=== PATIENT | female | born 1995 | race Caucasian/White ===

== ENCOUNTER 2016-07-24 23:55 | Emergency (ER) | payer OTHER ==
[~2016-07-24 23:55] MED LIST: ACET50TA PO; COLA100C PO; FLINCHW9 PO; MOTR200T44 PO
[2016-07-25 00:56] LABS: MEAN CORPUSCULAR HEMOGLOBIN 33.2 pg (27.0-33.0); MEAN CORPUSCULAR VOLUME 97.6 fl (80.0-96.0); RED CELL DISTRIBUTION WIDTH 11.6 % (11.5-14.5); WHITE BLOOD COUNT 7.8 K/mm3 (4.0-10.0)
[2016-07-25 01:03] LABS: AMPHETAMINES LEVEL URINE NEGATIVE (NEGATIVE); BENZODIAZEPINES URINE NEGATIVE (NEGATIVE); COCAINE METABOLITE URINE NEGATIVE (NEGATIVE); CONTROL LINE INT CTR LINE PRESENT; CONTROL LINE HCG INT CTR LINE PRESENT; METHADONE URINE NEGATIVE (NEGATIVE); OPIATES URINE NEGATIVE (NEGATIVE); TRICYCLIC ANTIDEPRESS URINE NEGATIVE (NEGATIVE)
[2016-07-25] MEDS ORDERED: ADACEL/BOOSTRIX VACCINE (DIPHTH/PERTUSS/ACELL/TETANUS)0.5ML SYR (90715) As Ordered ONE (01:06)
[2016-07-25 01:18] LABS: ALBUMIN 4.4 GM/DL (3.2-5.2); ALBUMIN/GLOBULIN RATIO 1.57 (1.00-1.93); ALKALINE PHOSPHATASE 93 U/L (45-117); ALT/SGPT 14 U/L (12-78); ANION GAP 7 MEQ/L (8-16); AST/SGOT 9 U/L (15-37); BILIRUBIN,DIRECT 0.2 MG/DL (0.0-0.2); BILIRUBIN,TOTAL 0.4 MG/DL (0.2-1.0); BLOOD UREA NITROGEN 8 MG/DL (7-18); CALCIUM LEVEL 8.9 MG/DL (8.5-10.1); CARBON DIOXIDE LEVEL 27 MEQ/L (21-32); CHLORIDE LEVEL 106 MEQ/L (98-107); CREATININE FOR GFR 0.78 MG/DL (0.55-1.02); GLOMERULAR FILTRATION RATE > 60.0 (>60); GLUCOSE, FASTING 88 MG/DL (70-105); POTASSIUM SERUM 3.9 MEQ/L (3.5-5.1); SODIUM LEVEL 140 MEQ/L (136-145); TOTAL PROTEIN 7.2 GM/DL (6.4-8.2)
[2016-07-25] MEDS ORDERED: NEOSPORIN OINT 0.9 GM PKT (FLOOR STOCK) As Ordered ONE (14:20)
--- NOTE | 2016-07-25 16:57 | ECGEPIP ---
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
--- NOTE | 2016-07-25 20:11 | EDDOCDS ---
Physician Documentation [facility] Name: Eryn Maldonado Age: 21 yrs Sex: Female : 1995 Arrival Date: 07/24/2016 Time: 23:[address] MD: Trevin Quintero MD Disposition: 07/25/16 17:20 Transfer ordered to [facility]. Diagnosis is Suicidal ideations. - Reason for transfer: Higher level of care. - Accepting physician is Dr. Taylor. - Condition is Unchanged. - Problem is new. - Symptoms are unchanged. Historical: - Allergies: no known allergies; - Home Meds: 1. was on prozac but quit taking 2 months ago - PMHx: none; - PSHx: none; - Immunization history:: Last tetanus immunization: unknown. - Family history: Not pertinent. - Social history: Smoking status: Patient uses tobacco products, light tobacco smoker. No barriers to communication noted, The patient speaks fluent [place]. - : The pt / caregiver states he / she is not on anticoagulants. Home medication list is obtained from the patient. - Exposure Risk Screening:: None identified. 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 2 in. (157.48 cm) (R); Pain 6/10; 07/25 06:28 BP 109 / 57; Pulse 88; Resp 16; Temp 98.3(TE); Pulse Ox 96% on R/A; Pain 0/10; rw1 11:08 BP 136 / 74; Pulse 86; Resp 16; Temp 97.4(O); Pulse Ox 98% on R/A; Pain 0/10; bcj 19:39 BP 103 / 61; Pulse 79; Resp 16; Temp 97.2(O); Pain 8/10; mf4 07/24 23:58 Body Mass Index 29.26 (72.57 kg, 157.48 cm) gr2 Procedures: 01:02 Laceration repair:. cs11 Laceration: 01:02 Wound Repair of 6.0cm ( 2.4in ) full thickness laceration to left arm. Distal cs11 neuro/vascular/tendon intact. Anesthesia: Local anesthetic administered with 3.0 mls of 1% lidocaine. Wound prep: Moderate cleansing with betadine by provider. Skin closed with 0 Silk using Running sutures. Patient tolerated well. MDM: 00:16 Consult PFS/PSA/Regulatory Assistant ordered. cs11 00:16 Consult PFS/PSA/Regulatory Assistant: Patient's case requires discussion with on-call cs11 Psychiatrist ordered. 00:16 PSA/PFS to call Nursing School Social Worker, to enter patient data on [place] Safe Act if patient cs11 involuntarily admitted or transferred for SI or HI ordered. 00:16 Confirm accurate psychiatric medication list and times of last dosage ordered. cs11 00:16 Detain Pt Until Medically/PFS Cleared ordered. cs11 00:17 Acetaminophen Level Ordered. EDMS 00:17 Basic Metabolic Profile Ordered. EDMS 00:17 Complete Blood Count Ordered. EDMS 00:17 Drug Eval Toxicology ED Only Ordered. EDMS 00:17 Ethyl Alcohol (ethanol) Ordered. EDMS 00:17 HCG,Serum Qualitative Ordered. EDMS 00:17 Liver Profile Ordered. EDMS 00:17 Salicylate Level Ordered. EDMS 00:17 Thyroid Stimulating Hormone Ordered. EDMS 00:23 Financial registration complete. pm4 00:55 [facility] Payment Agreement was scanned into [employer] and attached to record. gjb 00:59 Tetanus- Diptheria-Acellular Pertussis 0.5 ml IM once; Routine booster 10-64yrs, >64 cs11 with child contact [employer] ordered. 02:17 Consult PFS/PSA/Regulatory Assistant complete. jfb 02:17 Consult PFS/PSA/Regulatory Assistant: Patient's case requires discussion with on-call b Psychiatrist complete. 02:17 PSA/PFS to call Nursing School Social Worker, to enter patient data [place] Safe [place] if patient jfb involuntarily admitted or transferred for SI or HI complete. 03:34 Acetaminophen Level Reviewed. cs11 03:34 Basic Metabolic Profile Reviewed. cs11 03:34 Complete Blood Count Reviewed. cs11 03:34 Liver Profile Reviewed. cs11 03:34 Salicylate Level Reviewed. cs11 03:34 Drug Eval Toxicology ED Only Reviewed. cs11 03:34 Ethyl Alcohol (ethanol) Reviewed. cs11 03:34 HCG,Serum Qualitative Reviewed. cs11 03:34 Thyroid Stimulating Hormone Reviewed. cs11 03:35 Consult PFS/PSA/Socail Worker: Cleared medically for eval ordered. cs11 03:36 Consult PFS/PSA/Socail Worker: Cleared medically for eval complete. jfb 04:04 REGULAR DIET PLASTIC HARRIS+DIET ordered. EDMS 11:21 REGULAR DIET PLASTIC HARRIS+DIET ordered. EDMS 14:32 ECG WITH READING ER PHYS+CARDIAG ordered. EDMS 16:50 REGULAR DIET PLASTIC HARRIS+DIET ordered. 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 Lot #: [id number]. } Route: IM; Site: right deltoid; 04:03 Follow up: Response: No Adverse Reaction rw1 Signatures: Dispatcher [employer] Rosa Hinkle MD MD sd1 Janet Clifford RN RN jan Peters, Mary, RN RN mcp Workman, Robert, LPN PRODUCT SAFETY EXPERT rw1 Ely Ramirez PSA PSA jfArnie Pierre, DO cs11 Nichelle Cornejo Paul, Reg Reg pm4 The chart was reviewed and I authenticate all verbal orders and agree with the evaluation and treatment provided.Attachments: 00:55 [id number] Payment Agreement louis [email or web address]
--- NOTE | 2016-07-25 20:11 | EDDOCDS ---
Nurse's Notes [facility] Name: Eryn Maldonado Age: 21 yrs Sex: Female : 1995 Arrival Date: 07/24/2016 Time: 23:55 Bed [facility] Private MD: Trevin Quintero MD Diagnosis: Suicidal ideations Presentation: 07/25 00:13 Presenting complaint: Patient states: Pt stated "gets upset easily". Tonight cut left mcp forearm with razor--states did not intend to kill self. Adult Sepsis Screening: The patient does not have new or worsening altered mentation. Patient's respiratory rate is less than 22. Systolic blood pressure is greater than 100. Patient has a qSOFA score of 0- Negative Sepsis Screen. Suicide/Homicide risk assessment- The patient reports that he/she has not been admitted to an inpatient mental health facility in the last 30 days. Status: Patient is not a service cleaner or dependent. Transition of care: patient was not received from another setting of care. 00:13 Acuity: [place] Level 3 [facility] 00:13 Method Of Arrival: Walkin/Carried/Asstd [facility] Triage Assessment: 00:16 General: Appears uncomfortable, Behavior is cooperative. Pain: Location: dorsal aspect mcp of left forearm. HIV screening NA for this visit Offered previously. Neurological: No deficits noted. Respiratory: Airway is patent Respiratory effort is even, unlabored. Derm: Skin is pink, warm & dry. Injury Description: Laceration sustained to dorsal aspect of left forearm is clean, 0.5 to 2.5 cm long, bleeding moderately. 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 was on prozac but quit taking 2 months ago - PMHx: none; - PSHx: none; - Immunization history:: Last tetanus immunization: unknown. - Family history: Not pertinent. - Social history: Smoking status: Patient uses tobacco products, light tobacco smoker. No barriers to communication noted, The patient speaks fluent [place]. - : The pt / caregiver states he / she is not on anticoagulants. Home medication list is obtained from the patient. - Exposure Risk Screening:: None identified. Screenin:15 Screening information is obtained from the patient. Fall risk: No risks identified. bcj Assistance ADL's: requires no assistance with activities of daily living. Abuse/DV Screen: The patient / caregiver reports he/she is: not in a situation that causes fear, pain or injury. Nutritional screening: No deficits noted. Advance Directives: Currently, there is no health care proxy. home support is adequate. Assessment: 00:16 General: see triage assessment. rw1 01:00 Reassessment: Patient appears in no apparent distress at this time. awake resting on rw1 stretcher, safety maintained will monitor.. 02:02 General: Appears distressed, uncomfortable, Behavior is cooperative, crying, upset rw1 because she was just told that she couldn't be d/c'd, safety maintained. Pain: Location: left arm and dorsal aspect of left forearm Pain currently is 6 out of 10 on a pain scale. Neurological: Level of Consciousness is awake, alert, obeys commands, Oriented to person, place, time. Respiratory: Airway is patent Respiratory effort is even, unlabored. Derm: Skin is pink, warm & dry. normal, Lt. forearm applied Bactracin dion. to sutures and applied DSD per MD order. 02:30 General: Appears in no apparent distress, Behavior is cooperative. Neurological: Level ko2 of Consciousness is awake, alert. Respiratory: Airway is patent Respiratory effort is even, unlabored. Derm: Skin is normal, Left forearm with bandage covering cut. 03:00 Reassessment: Patient appears in no apparent distress at this time. resting quietly on rw1 stretcher, safety maintained will monitor.. 03:59 Reassessment: Patient appears in no apparent distress at this time. resting quietly on rw1 stretcher with eyes closed, safety maintained will monitor.. 05:00 Reassessment: Patient appears in no apparent distress at this time. resting quietly on rw1 stretcher with eyes closed, safety maintained will monitor.. 05:59 General: Appears in no apparent distress, Behavior is drowsy. Neurological: Level of ko2 Consciousness is alert, lethargic. Respiratory: Airway is patent Respiratory effort is even, unlabored. Derm: Skin is normal. 06:28 General: Appears in no apparent distress, comfortable, Behavior is appropriate for age, rw1 cooperative, quiet. Pain: Denies pain. Neurological: Level of Consciousness is awake, obeys commands, Oriented to person, place, time. Respiratory: Airway is patent Respiratory effort is even, unlabored. Derm: Skin is pink, warm & dry. normal, drsg. remains dry and intact. 07:30 General: Appears in no apparent distress, comfortable, Behavior is appropriate for age, pml cooperative. Neurological: Level of Consciousness is awake, alert, Oriented to person, place, time. Cardiovascular: Capillary refill < 3 seconds. Respiratory: Airway is patent Respiratory effort is even, unlabored. Derm: Skin is pink, warm & dry. 09:15 General: Appears in no apparent distress, comfortable, Behavior is cooperative. Pain: bcj Denies pain. Derm: Skin is pink, warm & dry. 10:27 General: Appears in no apparent distress, comfortable, Behavior is cooperative. Pain: bcj Denies pain. Derm: Skin is pink, warm & dry. 11:08 General: Appears distressed, Behavior is crying. Pain: Denies pain. Derm: Skin is pink, bcj warm & dry. dressing intact to left forearm. 13:21 General: Appears in no apparent distress, comfortable, Behavior is cooperative. Pain: bcj Denies pain. Derm: Skin is pink, warm & dry. 14:52 General: Appears in no apparent distress, comfortable, Behavior is cooperative. Pain: bcj Denies pain. Derm: dressing removed from sutured incision left inner arm - sm amt oozing noted on old dressing - no amol bleeding noted - redressed with NeoSporin - telfa - 4x4 and Alesia. paris. well. 18:47 General: Appears in no apparent distress, comfortable, Behavior is cooperative. Pain: bcj Denies pain. Derm: Skin is pink, warm & dry. Mental Health Eval: 02:20 Status: The patient is not a service cleaner or dependent. [facility] jfb Behavioral Health: The patient is not an established patient of [facility] Behavioral Health. Referral Information: Evaluation referral is generated by the patient himself / herself. The patient was referred for evaluation because PT cut there arm. 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 Around February 02 of last year she began to feel symptoms of depression and her OBGYN placed her on Prozac at a low dose. They renewed the script in April but she decided not to take it anymore. PT had also started cutting her skin and states it gave her some relief. Typically if she is feeling upset she will sleep in her son's room but when her boyfriend is home he does not like for her to do that. PT states denies that she has ever cut when alone with her son or in front of her son or that she has cut for over a month. 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 She is also struggling with BF (father of her son) as they briefly last year and she was talking to another man. asked PT to return but now he will periodically not come home or explain where he has been and he also tells PT that because she was with someone he has to be to feel better. Because PT's BF was home she did not seek her son's room and cut her left arm. PT states she did not cut with anymore pressure than typical but told her after that he had changed the utility knife blade earlier that day so it was much sharper than typical. Per Tristan PT came to him with her arm covered in blood but he states she typically does not tell him if she has been cutting and he doesn't ask. He too felt the new blade in the knife is the reason the cut tonight was as bad as it was. has no opinion when asked if he had concerns for PT to return home. . Delusions are denied. Patient's mood is anxious, Hallucinations are denied. Mental Health history: depression, self -mutilation, Mental Health Admissions: None. Current Outpatient Mental Health Services: Therapist / Agency: [facility]. PT engaged counseling 1x weekly and recently it was decided that she would begin 1x monthly appointments because she was doing so well. . Current living environment is The patient currently lives with his / her significant other, his father and PT's 2 year old son. Patient presents to Emergency Department with the following symptoms within the past 2 weeks: depressed mood, poor impulse control, relational problem, Patient has mutilated themselves by cutting their left arm. Substance abuse: Patient uses tobacco 4-5 cigarettes Frequency daily. Mental status exam: Patients appearance is appropriate, Patient's behavior is cooperative, Speech is normal. Affect is appropriate. Mood is anxious. Hallucinations are denied. Appetite is normal. states 3x daily but has lost 40 lbs over the past few months but unsure why Memory is good. Energy level is normal. Content of thought is normal. Thought process is intact. Cognitive level is oriented to person, place, time and situation Patient's insight is fair. Judgement is poor. Rapport with interviewer is good. Suicidal Ideation is denied. Homicidal ideation is denied. Disposition: Medically cleared for disposition by Arnie Rico DO Psychiatric Consult is performed by phone with Dr Arnie Rico DO. [facility] Admission Criteria: The patient displays self-mutilative behavior. The patient requires continuous observation and/or control to protect self, others or property. The patient's care requires a multi-modal treatment plan under close supervision and coordination due to the complexity and severity of the patient's symptoms. Legal Status: Patient's legal status will be [facility] Services admission: 9.37. DSM-V Differential Diagnosis: Unspecified Depressive Disorder (F32.9). Narrative: PT is not happy that she is being admitted and is crying. is providing support at this time. 19:35 Narrative: PT has been accepted to [facility]. [facility] to arrive shortly for transport. b Vital Signs: 07/24 23:58 BP 133 / 84; Pulse 101; Resp 18 S; Temp 97.3(O); Pulse Ox 98% on R/A; Weight 72.57 kg gr2 (R); Height 5 ft. 2 in. (157.48 cm) (R); Pain 6/10; 07/25 06:28 BP 109 / 57; Pulse 88; Resp 16; Temp 98.3(TE); Pulse Ox 96% on R/A; Pain 0/10; rw1 11:08 BP 136 / 74; Pulse 86; Resp 16; Temp 97.4(O); Pulse Ox 98% on R/A; Pain 0/10; bcj 19:39 BP 103 / 61; Pulse 79; Resp 16; Temp 97.2(O); Pain 8/10; mf4 07/24 23:58 Body Mass Index 29.26 (72.57 kg, 157.48 cm) gr2 Vitals: 07/24 23:58 Log In Time: July 24, 2016 at 23:58. RN notified that patient meets Red Flag gr2 criteria. ED Course: 23:57 Patient visited by Zelalem Albrecht. gr2 23:57 Trevin Quintero is Private Physician. gr2 23:57 Patient moved to Waiting gr2 02 00:00 Patient visited by Zelalem Albrecht. gr2 00:06 Neeraj Valdes LPN is Primary Nurse. rw1 00:06 Patient moved to [facility] tr 00:08 Arnie Rico DO is Attending Physician. cs11 00:08 Patient visited by Arnie Rico DO. cs11 00:15 Triage Initiated mcp 00:17 Patient visited by Alysia Amos RN. mcp 00:30 Patient visited by Juan Uribe. tr 00:37 Acetaminophen Level Sent. rw1 00:37 Basic Metabolic Profile Sent. rw1 00:37 Complete Blood Count Sent. rw1 00:37 Drug Eval Toxicology ED Only Sent. rw1 00:37 Ethyl Alcohol (ethanol) Sent. rw1 00:37 HCG,Serum Qualitative Sent. rw1 00:37 Liver Profile Sent. rw1 00:37 Salicylate Level Sent. rw1 00:37 Thyroid Stimulating Hormone Sent. rw1 00:46 Patient visited by Neeraj Valdes LPN. rw1 00:55 [facility] Payment Agreement was scanned into [employer] and attached to record. gjb 00:58 Patient visited by Juan Uribe. tr 01:18 Patient visited by Juan Uribe. tr 01:29 Patient visited by Juan Uribe. tr 01:44 Patient visited by Juan Uribe. tr 02:00 Patient visited by Juan Uribe. tr 02:19 Patient visited by Juan Uribe. tr 02:31 Patient visited by Juan Uribe. tr 02:45 Patient visited by Juan Uribe. tr 03:04 Patient visited by Juan Uribe. tr 03:29 Patient visited by Juan Uribe. tr 03:47 Patient visited by Juan Uribe. tr 04:00 Patient visited by Juan Uribe. tr 04:12 Patient visited by Juan Uribe. tr 04:31 Patient visited by Juan Uribe. tr 04:45 Patient visited by Juan Uribe. tr 05:40 Patient visited by Uribe Juan. tr 05:49 Patient visited by Uribe Juan. tr 05:58 Patient visited by Fanta Stevens RN. ko2 06:03 Patient visited by Uribe Juan. tr 06:19 Patient visited by [facility] Juan. tr 06:29 Patient visited by [facility] Juan. tr 06:50 Patient visited by [facility] Juan. tr 06:55 Attending Physician role handed off by Arnie Rico DO sd1 06:55 Rosa Broderick MD is Attending Physician. sd1 07:14 Patient visited by Claudio Zayas. dpm 07:22 Primary Nurse role handed off by Neeraj Valdes LPN kr3 07:25 Patient visited by Claudio Zayas. dpm 07:30 Patient visited by Ashely Rodriguez RN. pml 07:37 Patient visited by Claudio Zayas. dpm 07:52 Patient visited by Claudio Zayas. dpm 08:11 Patient visited by Chris Pollard RN. bcj 08:14 Patient visited by Claudio Zayas. dpm 08:25 Patient visited by Claudio Zayas. dpm 08:39 Patient visited by Claudio Zayas. dpm 08:56 Patient visited by Claudio Zayas. dpm 09:12 Patient visited by Claudio Zayas. dpm 09:15 No apparent distress. Resting quietly. Awaiting disposition. bcj 09:15 The patient / caregiver is instructed regarding the plan of care and ED course. Patient bcj has correct armband on for positive identification. Placed in gown. Placed in psych safe attire. Bed in low position. Security observing. 09:15 Labs drawn. (by ED staff). Sent per order to lab. Urine collected. Clean catch bcj specimen. Urine specimen sent to lab. 09:16 Patient visited by Chris Pollard RN. bcj 09:28 Patient visited by Claudio Zayas. dpm 09:44 Patient visited by Claudio Zayas. dpm 10:00 Patient visited by Claudio Zayas. dpm 10:16 Patient visited by Claudio Zayas. dpm 10:27 No apparent distress. Resting quietly. Awaiting disposition. bcj 10:27 Security observing. bcj 10:28 Patient visited by Chris Pollard RN. bcj 10:44 Patient visited by Claudio Zayas. dpm 11:01 Patient visited by Claudio Zayas. dpm 11:08 Appears tearful. Awaiting disposition. bcj 11:08 Security observing. bcj 11:10 Patient visited by Chris Pollard RN. bcj 11:23 Patient visited by Claudio Zayas. dpm 11:39 Patient visited by Claudio Zayas. dpm 11:45 Patient visited by Claudio Zayas. dpm 11:58 Patient visited by Claudio Zayas. dpm 12:17 Patient visited by Claudio Zayas. dpm 12:31 Patient visited by Claudio Zayas. dpm 12:51 Patient visited by Claudio Zayas. dpm 13:21 No apparent distress. Resting quietly. Awaiting disposition. bcj 13:21 Security observing. bcj 13:23 Patient visited by Chris Pollard RN. bcj 13:45 Patient visited by Claudio Zayas. dpm 14:14 Patient visited by Claudio Zayas. dpm 14:28 Patient visited by Claudio Zayas. dpm 14:43 Patient visited by Claudio Zayas. dpm 14:52 No apparent distress. Resting quietly. Awaiting disposition. bcj 14:52 Security observing. bcj 14:55 Patient visited by Chris Pollard RN. bcj 15:08 Patient visited by Natalee Ontiveros PCA. jam 15:23 Patient visited by Natalee Ontiveros PCA. jam1 15:42 Patient visited by Claudio Zayas. dpm 16:09 Patient visited by Claudio Zayas. dpm 16:22 Patient visited by Claudio Zayas. dpm 16:37 Patient visited by Claudio Zayas. dpm 16:52 Patient visited by Claudio Zayas. dpm 17:07 Patient visited by Claudio Zayas. dpm 17:19 EKG-ADULT Returned. EDMS 17:37 Patient visited by Claudio Zayas. dpm 18:00 Patient visited by Claudio Zayas. dpm 18:34 Patient visited by Claudio Zayas. dpm 18:46 Patient visited by Susannah Dave PCA. tmm1 18:47 No apparent distress. Resting quietly. Awaiting disposition. bcj 18:47 Security observing. bcj 18:47 No IV's were initiated during this patient's visit. No procedures done that require j assistance. 18:48 Patient visited by Chris Pollard RN. bcj 19:06 Patient visited by Claudio Zayas. dpm 19:23 Patient visited by Susannah Dave PCA. tmm1 19:43 Patient visited by Susannah Dave PCA. tmm1 Administered Medications: 01:30 Drug: Tetanus- Diptheria-Acellular Pertussis 0.5 ml [diphth,pertussis(acel),tetanus 2.5 rw1 Lf unit-8 mcg-5 Lf/0.5mL IM syringe (0.5 mL)] {[employer] Professional: [employer]. Exp: 08/05/2018. Lot #: [id number]. } Route: IM; Site: right deltoid; 04:03 Follow up: Response: No Adverse Reaction rw1 Order Results: Lab Order: Acetaminophen Level; SPEC'M 07/25/16 00:34 Test: ACETAMINOPHEN LEVEL; Value: < 2.0; Range: 10.0-30.0; Abnormal: Below low normal; Units: UG/ML; Status: F Lab Order: Basic Metabolic Profile; SPEC'M 07/25/16 00:34 Test: GLUCOSE, FASTING; Value: 88; Range: 70-105; Units: MG/DL; Status: F Test: BLOOD UREA NITROGEN; Value: 8; Range: 7-18; Units: MG/DL; Status: F Test: CREATININE FOR GFR; Value: 0.78; Range: 0.55-1.02; Units: MG/DL; Status: F Test: SODIUM LEVEL; Range: 136-145; Units: MEQ/L; Status: I Test: POTASSIUM SERUM; Range: 3.5-5.1; Units: MEQ/L; Status: I Test: CHLORIDE LEVEL; Range: 98-107; Units: MEQ/L; Status: I Test: CARBON DIOXIDE LEVEL; Range: 21-32; Units: MEQ/L; Status: I Test: ANION GAP; Range: 8-16; Units: MEQ/L; Status: I Test: CALCIUM LEVEL; Range: 8.5-10.1; Units: MG/DL; Status: I Test: GLOMERULAR FILTRATION RATE; Value: > 60.0; Range: >60; Status: F Test: SODIUM LEVEL; Value: 140; Range: 136-145; Units: MEQ/L; Status: F Test: POTASSIUM SERUM; Value: 3.9; Range: 3.5-5.1; Units: MEQ/L; Status: F Test: CHLORIDE LEVEL; Value: 106; Range: 98-107; Units: MEQ/L; Status: F Test: CARBON DIOXIDE LEVEL; Value: 27; Range: 21-32; Units: MEQ/L; Status: F Test: ANION GAP; Value: 7; Range: 8-16; Abnormal: Below low normal; Units: MEQ/L; Status: F Test: CALCIUM LEVEL; Value: 8.9; Range: 8.5-10.1; Units: MG/DL; Status: F Test Note: ; Units are mL/min/1.73 m2 Chronic Kidney Disease Staging per NKF: Stage I & II GFR >=60 Normal to Mildly Decreased Stage III GFR 30-59 Moderately Decreased Stage IV GFR 15-29 Severely Decreased Stage V GFR <15 Very Little GFR Left ESRD GFR <15 on PER DIEM RN Lab Order: Complete Blood Count; SPEC'M 07/25/16 00:34 Test: WHITE BLOOD COUNT; Value: 7.8; Range: 4.0-10.0; Units: K/mm3; Status: F Test: RED BLOOD COUNT; Value: 4.32; Range: 4.00-5.40; Units: M/mm3; Status: F Test: HEMOGLOBIN; Value: 14.3; Range: 12.0-16.0; Units: g/dl; Status: F Test: HEMATOCRIT; Value: 42.2; Range: 36.0-47.0; Units: %; Status: F Test: MEAN CORPUSCULAR VOLUME; Value: 97.6; Range: 80.0-96.0; Abnormal: Above high normal; Units: fl; Status: F Test: MEAN CORPUSCULAR HEMOGLOBIN; Value: 33.2; Range: 27.0-33.0; Abnormal: Above high normal; Units: pg; Status: F Test: MEAN CORPUSCULAR HGB CONC; Value: 34.0; Range: 32.0-36.5; Units: g/dl; Status: F Test: RED CELL DISTRIBUTION WIDTH; Value: 11.6; Range: 11.5-14.5; Units: %; Status: F Test: PLATELET COUNT, AUTOMATED; Value: 263; Range: 150-450; Units: k/mm3; Status: F Lab Order: Drug Eval Toxicology ED Only; SPEC'M 07/25/16 00:34 Test: AMPHETAMINES LEVEL URINE; Value: NEGATIVE; Range: NEGATIVE; Status: F Test: BARBITURATES URINE; Value: NEGATIVE; Range: NEGATIVE; Status: F Test: BENZODIAZEPINES URINE; Value: NEGATIVE; Range: NEGATIVE; Status: F Test: CANNABINOIDS URINE; Value: NEGATIVE; Range: NEGATIVE; Status: F Test: COCAINE METABOLITE URINE; Value: NEGATIVE; Range: NEGATIVE; Status: F Test: METHADONE URINE; Value: NEGATIVE; Range: NEGATIVE; Status: F Test: OPIATES URINE; Value: NEGATIVE; Range: NEGATIVE; Status: F Test: TRICYCLIC ANTIDEPRESS URINE; Value: NEGATIVE; Range: NEGATIVE; Status: F Test Note: ; ALL PRESUMPTIVE POSITIVE FINDINGS ARE UNCONFIRMED NORMAL VALUES THRESHOLD IN NG/ML AMPHETAMINES 1000 METHAMPHETAMINES 1000 BARBITURATES 300 BENZODIAZEPINES 300 CANNABINOIDS (THC) 50 COCAINE METABOLITE 300 METHADONE 300 OPIATES 300 PHENCYCLIDINE 25 TRICYCLIC ANTIDEPRESSANTS 1000 RESULTS ARE FOR MEDICAL PURPOSES ONLY. ALL URINE SPECIMENS WILL BE SAVED FOR 3 DAYS. IF CONFIRMATION OF A PRESUMPTIVE POSTIVE SCREEN RESULT IS DESIRED, CALL CHEMISTRY ([phone]) AND REQUEST URINE TO BE SENT TO REFERENCE LAB. FOR A LIST OF CLOSELY RELATED COMPOUNDS PLEASE CALL THE LAB. Lab Order: Ethyl Alcohol (ethanol); SPEC'M 07/25/16 00:34 Test: ETHYL ALCOHOL (ETHANOL); Value: < 0.003; Range: 0.000-0.010; Units: %; Status: F Lab Order: HCG,Serum Qualitative; SPEC'M 07/25/16 00:34 Test: HCG, SERUM QUALITATIVE; Value: NEGATIVE; Range: NEGATIVE; Status: F Lab Order: Liver Profile; SPEC'M 07/25/16 00:34 Test: AST/SGOT; Value: 9; Range: 15-37; Abnormal: Below low normal; Units: U/L; Status: F Test: ALT/SGPT; Value: 14; Range: 12-78; Units: U/L; Status: F Test: ALKALINE PHOSPHATASE; Value: 93; Range: 45-117; Units: U/L; Status: F Test: BILIRUBIN,TOTAL; Value: 0.4; Range: 0.2-1.0; Units: MG/DL; Status: F Test: BILIRUBIN,DIRECT; Value: 0.2; Range: 0.0-0.2; Units: MG/DL; Status: F Test: TOTAL PROTEIN; Value: 7.2; Range: 6.4-8.2; Units: GM/DL; Status: F Test: ALBUMIN; Value: 4.4; Range: 3.2-5.2; Units: GM/DL; Status: F Test: ALBUMIN/GLOBULIN RATIO; Value: 1.57; Range: 1.00-1.93; Status: F Lab Order: Salicylate Level; SPEC'M 07/25/16 00:34 Test: SALICYLATE LEVEL; Value: < 1.7; Range: 5.0-30.0; Abnormal: Below low normal; Units: MG/DL; Status: F Lab Order: Thyroid Stimulating Hormone; SPEC'M 07/25/16 00:34 Test: THYROID STIMULATING HORMONE; Value: 0.645; Range: 0.358-3.740; Units: uIU/ML; Status: F Radiology Order: EKG-ADULT Test: EKG-ADULT REASON FOR EXAMINATION: psych; Stationary ECG Study; [facility] - ED; ; Test Date: 2016-07-25; Pat Name: ERYN MALDONADO Department:; Room: -; Gender: F 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 sd1 19:41 Discharge Assessment: patient administered narcotics - no. The following High Risk 4 Discharge criteria are identified: None. Discharged to [facility]. Condition: stable. No special radiology studies were completed. Property given to EMS transport crew. 19:42 Transferred to [facility] to bart accompanying personnel Aga Barillas EMT, Jonathan Ricci- [employer] Clerk, Transfer form completed. 20:10 Patient left the ED. bart Signatures: Dispatcher [employer] EDMS Rosa Broderick MD MD sd1 Chris Pollard, RN RN kalani Clifford, Janet Guardado RN Alysia Gimenez RN Natalee White mcp, SOFTWARE ENGINEER ADVISOR SOFTWARE ENGINEER ADVISOR jam1 Juan Uribe KathleenRN RN kr3 Neeraj Valdes,CLOTH LAYER CLOTH LAYER rw1 Ely Ramirez, PSA PSA jfb Bradly Beebe,CLOTH LAYER CLOTH LAYER mf4 Ashely RodriguezRN RN Claudio Frost dpArnie Benjamin, DO cs11 Susannah Dave, SOFTWARE ENGINEER ADVISOR SOFTWARE ENGINEER ADVISOR tmm1 Zelalem Albrecht gr2 Fanta Stevens RN RN Nichelle Casey MTDD
--- NOTE | 2016-07-27 21:10 | EDDOCDS ---
Nurse's Notes [facility] Name: Eryn Maldonado Age: 21 yrs Sex: Female : 1995 Arrival Date: 07/24/2016 Time: 23:55 Bed [facility] Private MD: Trevin Quintero MD Diagnosis: Suicidal ideations Presentation: 07/25 00:13 Presenting complaint: Patient states: Pt stated "gets upset easily". Tonight cut left mcp forearm with razor--states did not intend to kill self. Adult Sepsis Screening: The patient does not have new or worsening altered mentation. Patient's respiratory rate is less than 22. Systolic blood pressure is greater than 100. Patient has a qSOFA score of 0- Negative Sepsis Screen. Suicide/Homicide risk assessment- The patient reports that he/she has not been admitted to an inpatient mental health facility in the last 30 days. Status: Patient is not a service inspector or dependent. Transition of care: patient was not received from another setting of care. 00:13 Acuity: [place] Level 3 [facility] 00:13 Method Of Arrival: Walkin/Carried/Asstd [facility] Triage Assessment: 00:16 General: Appears uncomfortable, Behavior is cooperative. Pain: Location: dorsal aspect mcp of left forearm. HIV screening NA for this visit Offered previously. Neurological: No deficits noted. Respiratory: Airway is patent Respiratory effort is even, unlabored. Derm: Skin is pink, warm & dry. Injury Description: Laceration sustained to dorsal aspect of left forearm is clean, 0.5 to 2.5 cm long, bleeding moderately. 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 was on prozac but quit taking 2 months ago - PMHx: none; - PSHx: none; - Immunization history:: Last tetanus immunization: unknown. - Family history: Not pertinent. - Social history: Smoking status: Patient uses tobacco products, light tobacco smoker. No barriers to communication noted, The patient speaks fluent Ivorian. - : The pt / caregiver states he / she is not on anticoagulants. Home medication list is obtained from the patient. - Exposure Risk Screening:: None identified. Screenin:15 Screening information is obtained from the patient. Fall risk: No risks identified. bcj Assistance ADL's: requires no assistance with activities of daily living. Abuse/DV Screen: The patient / caregiver reports he/she is: not in a situation that causes fear, pain or injury. Nutritional screening: No deficits noted. Advance Directives: Currently, there is no health care proxy. home support is adequate. Assessment: 00:16 General: see triage assessment. rw1 01:00 Reassessment: Patient appears in no apparent distress at this time. awake resting on rw1 stretcher, safety maintained will monitor.. 02:02 General: Appears distressed, uncomfortable, Behavior is cooperative, crying, upset rw1 because she was just told that she couldn't be d/c'd, safety maintained. Pain: Location: left arm and dorsal aspect of left forearm Pain currently is 6 out of 10 on a pain scale. Neurological: Level of Consciousness is awake, alert, obeys commands, Oriented to person, place, time. Respiratory: Airway is patent Respiratory effort is even, unlabored. Derm: Skin is pink, warm & dry. normal, Lt. forearm applied Bactracin dion. to sutures and applied DSD per MD order. 02:30 General: Appears in no apparent distress, Behavior is cooperative. Neurological: Level ko2 of Consciousness is awake, alert. Respiratory: Airway is patent Respiratory effort is even, unlabored. Derm: Skin is normal, Left forearm with bandage covering cut. 03:00 Reassessment: Patient appears in no apparent distress at this time. resting quietly on rw1 stretcher, safety maintained will monitor.. 03:59 Reassessment: Patient appears in no apparent distress at this time. resting quietly on rw1 stretcher with eyes closed, safety maintained will monitor.. 05:00 Reassessment: Patient appears in no apparent distress at this time. resting quietly on rw1 stretcher with eyes closed, safety maintained will monitor.. 05:59 General: Appears in no apparent distress, Behavior is drowsy. Neurological: Level of ko2 Consciousness is alert, lethargic. Respiratory: Airway is patent Respiratory effort is even, unlabored. Derm: Skin is normal. 06:28 General: Appears in no apparent distress, comfortable, Behavior is appropriate for age, rw1 cooperative, quiet. Pain: Denies pain. Neurological: Level of Consciousness is awake, obeys commands, Oriented to person, place, time. Respiratory: Airway is patent Respiratory effort is even, unlabored. Derm: Skin is pink, warm & dry. normal, drsg. remains dry and intact. 07:30 General: Appears in no apparent distress, comfortable, Behavior is appropriate for age, pml cooperative. Neurological: Level of Consciousness is awake, alert, Oriented to person, place, time. Cardiovascular: Capillary refill < 3 seconds. Respiratory: Airway is patent Respiratory effort is even, unlabored. Derm: Skin is pink, warm & dry. 09:15 General: Appears in no apparent distress, comfortable, Behavior is cooperative. Pain: bcj Denies pain. Derm: Skin is pink, warm & dry. 10:27 General: Appears in no apparent distress, comfortable, Behavior is cooperative. Pain: bcj Denies pain. Derm: Skin is pink, warm & dry. 11:08 General: Appears distressed, Behavior is crying. Pain: Denies pain. Derm: Skin is pink, bcj warm & dry. dressing intact to left forearm. 13:21 General: Appears in no apparent distress, comfortable, Behavior is cooperative. Pain: bcj Denies pain. Derm: Skin is pink, warm & dry. 14:52 General: Appears in no apparent distress, comfortable, Behavior is cooperative. Pain: bcj Denies pain. Derm: dressing removed from sutured incision left inner arm - sm amt oozing noted on old dressing - no amol bleeding noted - redressed with NeoSporin - telfa - 4x4 and Alesia. paris. well. 18:47 General: Appears in no apparent distress, comfortable, Behavior is cooperative. Pain: bcj Denies pain. Derm: Skin is pink, warm & dry. Mental Health Eval: 02:20 Status: The patient is not a service inspector or dependent. [facility] Behavioral Health: The patient is not an established patient of [facility] Behavioral Health. Referral Information: Evaluation referral is generated by the patient himself / herself. The patient was referred for evaluation because PT cut there arm. 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 Around February 02 of last year she began to feel symptoms of depression and her OBGYN placed her on Prozac at a low dose. They renewed the script in April but she decided not to take it anymore. PT had also started cutting her skin and states it gave her some relief. Typically if she is feeling upset she will sleep in her son's room but when her boyfriend is home he does not like for her to do that. PT states denies that she has ever cut when alone with her son or in front of her son or that she has cut for over a month. 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 She is also struggling with BF (father of her son) as they briefly last year and she was talking to another man. asked PT to return but now he will periodically not come home or explain where he has been and he also tells PT that because she was with someone he has to be to feel better. Because PT's BF was home she did not seek her son's room and cut her left arm. PT states she did not cut with anymore pressure than typical but told her after that he had changed the utility knife blade earlier that day so it was much sharper than typical. Per Tristan PT came to him with her arm covered in blood but he states she typically does not tell him if she has been cutting and he doesn't ask. He too felt the new blade in the knife is the reason the cut tonight was as bad as it was. has no opinion when asked if he had concerns for PT to return home. . Delusions are denied. Patient's mood is anxious, Hallucinations are denied. Mental Health history: depression, self -mutilation, Mental Health Admissions: None. Current Outpatient Mental Health Services: Therapist / Agency: [facility]. PT engaged counseling 1x weekly and recently it was decided that she would begin 1x monthly appointments because she was doing so well. . Current living environment is The patient currently lives with his / her significant other, his father and PT's 2 year old son. Patient presents to Emergency Department with the following symptoms within the past 2 weeks: depressed mood, poor impulse control, relational problem, Patient has mutilated themselves by cutting their left arm. Substance abuse: Patient uses tobacco 4-5 cigarettes Frequency daily. Mental status exam: Patients appearance is appropriate, Patient's behavior is cooperative, Speech is normal. Affect is appropriate. Mood is anxious. Hallucinations are denied. Appetite is normal. states 3x daily but has lost 40 lbs over the past few months but unsure why Memory is good. Energy level is normal. Content of thought is normal. Thought process is intact. Cognitive level is oriented to person, place, time and situation Patient's insight is fair. Judgement is poor. Rapport with interviewer is good. Suicidal Ideation is denied. Homicidal ideation is denied. Disposition: Medically cleared for disposition by Arnie Rico DO Psychiatric Consult is performed by phone with Dr Arnie Rico DO. [facility] Admission Criteria: The patient displays self-mutilative behavior. The patient requires continuous observation and/or control to protect self, others or property. The patient's care requires a multi-modal treatment plan under close supervision and coordination due to the complexity and severity of the patient's symptoms. Legal Status: Patient's legal status will be [facility] admission: 9.37. DSM-V Differential Diagnosis: Unspecified Depressive Disorder (F32.9). Narrative: PT is not happy that she is being admitted and is crying. is providing support at this time. 19:35 Narrative: PT has been accepted to [facility]. [facility] to arrive shortly for transport. b Vital Signs: 07/24 23:58 BP 133 / 84; Pulse 101; Resp 18 S; Temp 97.3(O); Pulse Ox 98% on R/A; Weight 72.57 kg gr2 (R); Height 5 ft. 2 in. (157.48 cm) (R); Pain 6/10; 07/25 06:28 BP 109 / 57; Pulse 88; Resp 16; Temp 98.3(TE); Pulse Ox 96% on R/A; Pain 0/10; rw1 11:08 BP 136 / 74; Pulse 86; Resp 16; Temp 97.4(O); Pulse Ox 98% on R/A; Pain 0/10; bcj 19:39 BP 103 / 61; Pulse 79; Resp 16; Temp 97.2(O); Pain 8/10; mf4 07/24 23:58 Body Mass Index 29.26 (72.57 kg, 157.48 cm) gr2 Vitals: 07/24 23:58 Log In Time: July 24, 2016 at 23:58. RN notified that patient meets Red Flag gr2 criteria. ED Course: 23:57 Patient visited by Zelalem Albrecht. gr2 23:57 Trevin Quintero is Private Physician. gr2 23:57 Patient moved to Waiting gr2 02 00:00 Patient visited by Zelalem Albrecht. gr2 00:06 Neeraj Valdes LPN is Primary Nurse. rw1 00:06 Patient moved to [facility] tr 00:08 Arnie Rico DO is Attending Physician. cs11 00:08 Patient visited by Arnie Rico DO. cs11 00:15 Triage Initiated mcp 00:17 Patient visited by Alysia Amos RN. mcp 00:30 Patient visited by Juan Uribe. tr 00:37 Acetaminophen Level Sent. rw1 00:37 Basic Metabolic Profile Sent. rw1 00:37 Complete Blood Count Sent. rw1 00:37 Drug Eval Toxicology ED Only Sent. rw1 00:37 Ethyl Alcohol (ethanol) Sent. rw1 00:37 HCG,Serum Qualitative Sent. rw1 00:37 Liver Profile Sent. rw1 00:37 Salicylate Level Sent. rw1 00:37 Thyroid Stimulating Hormone Sent. rw1 00:46 Patient visited by Neeraj Valdes LPN. rw1 00:55 ID-[facility] Payment Agreement was scanned into LogoGr[employer] and attached to record. gjb 00:58 Patient visited by Juan Uribe. tr 01:18 Patient visited by Juan Uribe. tr 01:29 Patient visited by Juan Uribe. tr 01:44 Patient visited by Juan Uribe. tr 02:00 Patient visited by Juan Uribe. tr 02:19 Patient visited by Juan Uribe. tr 02:31 Patient visited by Juan Uribe. tr 02:45 Patient visited by Juan Uribe. tr 03:04 Patient visited by Juan Uribe. tr 03:29 Patient visited by Juan Uribe. tr 03:47 Patient visited by Juan Uribe. tr 04:00 Patient visited by Juan Uribe. tr 04:12 Patient visited by Juan Uribe. tr 04:31 Patient visited by Juan Uribe. tr 04:45 Patient visited by Juan Uribe. tr 05:40 Patient visited by Uribe Juan. tr 05:49 Patient visited by Uribe Juan. tr 05:58 Patient visited by Fanta Stevens RN. ko2 06:03 Patient visited by Uribe Juan. tr 06:19 Patient visited by [facility] Juan. tr 06:29 Patient visited by [facility] Juan. tr 06:50 Patient visited by [facility] Juan. tr 06:55 Attending Physician role handed off by Arnie Rico DO sd1 06:55 Rosa Broderick MD is Attending Physician. sd1 07:14 Patient visited by Claudio Zayas. dpm 07:22 Primary Nurse role handed off by Neeraj Valdes LPN kr3 07:25 Patient visited by Claudio Zayas. dpm 07:30 Patient visited by Ashely Rodriguez RN. pml 07:37 Patient visited by Claudio Zayas. dpm 07:52 Patient visited by Caludio Zayas. dpm 08:11 Patient visited by Chris Pollard RN. bcj 08:14 Patient visited by Claudio Zayas. dpm 08:25 Patient visited by Claudio Zayas. dpm 08:39 Patient visited by Claudio Zayas. dpm 08:56 Patient visited by Claudio Zayas. dpm 09:12 Patient visited by Claudio Zayas. dpm 09:15 No apparent distress. Resting quietly. Awaiting disposition. bcj 09:15 The patient / caregiver is instructed regarding the plan of care and ED course. Patient bcj has correct armband on for positive identification. Placed in gown. Placed in psych safe attire. Bed in low position. Security observing. 09:15 Labs drawn. (by ED staff). Sent per order to lab. Urine collected. Clean catch bcj specimen. Urine specimen sent to lab. 09:16 Patient visited by Chris Pollard RN. bcj 09:28 Patient visited by Claudio Zayas. dpm 09:44 Patient visited by Claudio Zayas. dpm 10:00 Patient visited by Claudio Zayas. dpm 10:16 Patient visited by Claudio Zayas. dpm 10:27 No apparent distress. Resting quietly. Awaiting disposition. bcj 10:27 Security observing. bcj 10:28 Patient visited by Chris Pollard RN. bcj 10:44 Patient visited by Claudio Zayas. dpm 11:01 Patient visited by Claudio Zayas. dpm 11:08 Appears tearful. Awaiting disposition. bcj 11:08 Security observing. bcj 11:10 Patient visited by Chris Pollard RN. bcj 11:23 Patient visited by Claudio Zayas. dpm 11:39 Patient visited by Claudio Zayas. dpm 11:45 Patient visited by Claudio Zayas. dpm 11:58 Patient visited by Claudio Zayas. dpm 12:17 Patient visited by Claudio Zayas. dpm 12:31 Patient visited by Claudio Zayas. dpm 12:51 Patient visited by Claudio Zayas. dpm 13:21 No apparent distress. Resting quietly. Awaiting disposition. bcj 13:21 Security observing. bcj 13:23 Patient visited by Chris Pollard RN. bcj 13:45 Patient visited by Claudio Zayas. dpm 14:14 Patient visited by Claudio Zayas. dpm 14:28 Patient visited by Claudio Zayas. dpm 14:43 Patient visited by Claudio Zayas. dpm 14:52 No apparent distress. Resting quietly. Awaiting disposition. bcj 14:52 Security observing. bcj 14:55 Patient visited by Chris Pollard RN. bcj 15:08 Patient visited by Natalee Ontiveros PCA. jam 15:23 Patient visited by Natalee Ontiveros PCA. jam1 15:42 Patient visited by Claudio Zayas. dpm 16:09 Patient visited by Claudio Zayas. dpm 16:22 Patient visited by Claudio Zayas. dpm 16:37 Patient visited by Claudio Zayas. dpm 16:52 Patient visited by Claudio Zayas. dpm 17:07 Patient visited by Claudio Zayas. dpm 17:19 EKG-ADULT Returned. EDMS 17:37 Patient visited by Claudio Zayas. dpm 18:00 Patient visited by Claudio Zayas. dpm 18:34 Patient visited by Claudio Zayas. dpm 18:46 Patient visited by Susannah Dave PCA. tmm1 18:47 No apparent distress. Resting quietly. Awaiting disposition. bcj 18:47 Security observing. bcj 18:47 No IV's were initiated during this patient's visit. No procedures done that require bcj assistance. 18:48 Patient visited by Chris Pollard RN. bcj 19:06 Patient visited by Claudio Zayas. dpm 19:23 Patient visited by Susannah Dave PCA. tmm1 19:43 Patient visited by Susannah Dave PCA. tmm1 02 09:07 T-Sheet-- Draft Copy was scanned into LogoGrab and attached to record. gb 09:07 ECG/EKG was scanned into Logo[employer] and attached to record. gb Administered Medications: 07/25 01:30 Drug: Tetanus- Diptheria-Acellular Pertussis 0.5 ml [diphth,pertussis(acel),tetanus 2.5 rw1 Lf unit-8 mcg-5 Lf/0.5mL IM syringe (0.5 mL)] {Toby Maker: [employer]. Exp: 08/05/2018. Lot #: [id number]. } Route: IM; Site: right deltoid; 04:03 Follow up: Response: No Adverse Reaction rw1 Order Results: Lab Order: Acetaminophen Level; SPEC'M 07/25/16 00:34 Test: ACETAMINOPHEN LEVEL; Value: < 2.0; Range: 10.0-30.0; Abnormal: Below low normal; Units: UG/ML; Status: F Lab Order: Basic Metabolic Profile; SPEC'M 07/25/16 00:34 Test: GLUCOSE, FASTING; Value: 88; Range: 70-105; Units: MG/DL; Status: F Test: BLOOD UREA NITROGEN; Value: 8; Range: 7-18; Units: MG/DL; Status: F Test: CREATININE FOR GFR; Value: 0.78; Range: 0.55-1.02; Units: MG/DL; Status: F Test: SODIUM LEVEL; Range: 136-145; Units: MEQ/L; Status: I Test: POTASSIUM SERUM; Range: 3.5-5.1; Units: MEQ/L; Status: I Test: CHLORIDE LEVEL; Range: 98-107; Units: MEQ/L; Status: I Test: CARBON DIOXIDE LEVEL; Range: 21-32; Units: MEQ/L; Status: I Test: ANION GAP; Range: 8-16; Units: MEQ/L; Status: I Test: CALCIUM LEVEL; Range: 8.5-10.1; Units: MG/DL; Status: I Test: GLOMERULAR FILTRATION RATE; Value: > 60.0; Range: >60; Status: F Test: SODIUM LEVEL; Value: 140; Range: 136-145; Units: MEQ/L; Status: F Test: POTASSIUM SERUM; Value: 3.9; Range: 3.5-5.1; Units: MEQ/L; Status: F Test: CHLORIDE LEVEL; Value: 106; Range: 98-107; Units: MEQ/L; Status: F Test: CARBON DIOXIDE LEVEL; Value: 27; Range: 21-32; Units: MEQ/L; Status: F Test: ANION GAP; Value: 7; Range: 8-16; Abnormal: Below low normal; Units: MEQ/L; Status: F Test: CALCIUM LEVEL; Value: 8.9; Range: 8.5-10.1; Units: MG/DL; Status: F Test Note: ; Units are mL/min/1.73 m2 Chronic Kidney Disease Staging per NKF: Stage I & II GFR >=60 Normal to Mildly Decreased Stage III GFR 30-59 Moderately Decreased Stage IV GFR 15-29 Severely Decreased Stage V GFR <15 Very Little GFR Left ESRD GFR <15 on RETAIL CLIENT SOLUTIONS ANALYST Lab Order: Complete Blood Count; SPEC'M 07/25/16 00:34 Test: WHITE BLOOD COUNT; Value: 7.8; Range: 4.0-10.0; Units: K/mm3; Status: F Test: RED BLOOD COUNT; Value: 4.32; Range: 4.00-5.40; Units: M/mm3; Status: F Test: HEMOGLOBIN; Value: 14.3; Range: 12.0-16.0; Units: g/dl; Status: F Test: HEMATOCRIT; Value: 42.2; Range: 36.0-47.0; Units: %; Status: F Test: MEAN CORPUSCULAR VOLUME; Value: 97.6; Range: 80.0-96.0; Abnormal: Above high normal; Units: fl; Status: F Test: MEAN CORPUSCULAR HEMOGLOBIN; Value: 33.2; Range: 27.0-33.0; Abnormal: Above high normal; Units: pg; Status: F Test: MEAN CORPUSCULAR HGB CONC; Value: 34.0; Range: 32.0-36.5; Units: g/dl; Status: F Test: RED CELL DISTRIBUTION WIDTH; Value: 11.6; Range: 11.5-14.5; Units: %; Status: F Test: PLATELET COUNT, AUTOMATED; Value: 263; Range: 150-450; Units: k/mm3; Status: F Lab Order: Drug Eval Toxicology ED Only; SPEC'M 07/25/16 00:34 Test: AMPHETAMINES LEVEL URINE; Value: NEGATIVE; Range: NEGATIVE; Status: F Test: BARBITURATES URINE; Value: NEGATIVE; Range: NEGATIVE; Status: F Test: BENZODIAZEPINES URINE; Value: NEGATIVE; Range: NEGATIVE; Status: F Test: CANNABINOIDS URINE; Value: NEGATIVE; Range: NEGATIVE; Status: F Test: COCAINE METABOLITE URINE; Value: NEGATIVE; Range: NEGATIVE; Status: F Test: METHADONE URINE; Value: NEGATIVE; Range: NEGATIVE; Status: F Test: OPIATES URINE; Value: NEGATIVE; Range: NEGATIVE; Status: F Test: TRICYCLIC ANTIDEPRESS URINE; Value: NEGATIVE; Range: NEGATIVE; Status: F Test Note: ; ALL PRESUMPTIVE POSITIVE FINDINGS ARE UNCONFIRMED NORMAL VALUES THRESHOLD IN NG/ML AMPHETAMINES 1000 METHAMPHETAMINES 1000 BARBITURATES 300 BENZODIAZEPINES 300 CANNABINOIDS (THC) 50 COCAINE METABOLITE 300 METHADONE 300 OPIATES 300 PHENCYCLIDINE 25 TRICYCLIC ANTIDEPRESSANTS 1000 RESULTS ARE FOR MEDICAL PURPOSES ONLY. ALL URINE SPECIMENS WILL BE SAVED FOR 3 DAYS. IF CONFIRMATION OF A PRESUMPTIVE POSTIVE SCREEN RESULT IS DESIRED, CALL CHEMISTRY ([phone]) AND REQUEST URINE TO BE SENT TO REFERENCE LAB. FOR A LIST OF CLOSELY RELATED COMPOUNDS PLEASE CALL THE LAB. Lab Order: Ethyl Alcohol (ethanol); SPEC'M 07/25/16 00:34 Test: ETHYL ALCOHOL (ETHANOL); Value: < 0.003; Range: 0.000-0.010; Units: %; Status: F Lab Order: HCG,Serum Qualitative; SPEC'M 07/25/16 00:34 Test: HCG, SERUM QUALITATIVE; Value: NEGATIVE; Range: NEGATIVE; Status: F Lab Order: Liver Profile; SPEC'M 07/25/16 00:34 Test: AST/SGOT; Value: 9; Range: 15-37; Abnormal: Below low normal; Units: U/L; Status: F Test: ALT/SGPT; Value: 14; Range: 12-78; Units: U/L; Status: F Test: ALKALINE PHOSPHATASE; Value: 93; Range: 45-117; Units: U/L; Status: F Test: BILIRUBIN,TOTAL; Value: 0.4; Range: 0.2-1.0; Units: MG/DL; Status: F Test: BILIRUBIN,DIRECT; Value: 0.2; Range: 0.0-0.2; Units: MG/DL; Status: F Test: TOTAL PROTEIN; Value: 7.2; Range: 6.4-8.2; Units: GM/DL; Status: F Test: ALBUMIN; Value: 4.4; Range: 3.2-5.2; Units: GM/DL; Status: F Test: ALBUMIN/GLOBULIN RATIO; Value: 1.57; Range: 1.00-1.93; Status: F Lab Order: Salicylate Level; SPEC'M 07/25/16 00:34 Test: SALICYLATE LEVEL; Value: < 1.7; Range: 5.0-30.0; Abnormal: Below low normal; Units: MG/DL; Status: F Lab Order: Thyroid Stimulating Hormone; SPEC'M 07/25/16 00:34 Test: THYROID STIMULATING HORMONE; Value: 0.645; Range: 0.358-3.740; Units: uIU/ML; Status: F Radiology Order: EKG-ADULT Test: EKG-ADULT REASON FOR EXAMINATION: psych; Stationary ECG Study; [facility] - ED; ; Test Date: 2016-07-25; Pat Name: ERYN MALDONADO Department:; Room: -; Gender: F Radio Communications Mechanician: anabelle; : 1995 Requested By: Rosa Broderick; Order Number: [id number] Reading MD: Christian Rahman; Measurements; Intervals [place]; Rate: 57 P: 48; LA: 121 QRS: 70; QRSD: 79 T: 59; QT: 377; QTc: 369; Interpretive Statements; SINUS BRADYCARDIA WITH OCCASIONAL SUPRAVENTRICULAR PREMATURE COMPLEXES; ; Electronically Signed On 07-25-2016 16:56:54 EST by Christian Rahman; Outcome: 17:20 ER care complete, transfer ordered by Provider. sd1 19:41 Discharge Assessment: patient administered narcotics - no. The following High Risk [facility] Discharge criteria are identified: None. Discharged to [facility]. Condition: stable. No special radiology studies were completed. Property given to EMS transport crew. 19:[address] [facility]. by EMS ground [facility] ambulance report to bart accompanying personnel Aga Graves Basic EMT, Jonathan Ricci- Fishing Worker, Transfer form completed. 20:10 Patient left the ED. bart Signatures: Dispatcher [employer] EDMS Rosa Broderick MD MD sd1 Chris Pollard, RN DOUG Clifford, DOUG Amador RN, Mary, Natalee White RN, mcp, SYSTEMS PROTECTION TECHNICIAN SYSTEMS PROTECTION TECHNICIAN jam1 Symone Hills, Reg Reg gb Rony, Juan tr Marcia MyersRN RN kr3 Neeraj Valdes,SURFACE MOUNT TECHNOLOGY OPERATOR SURFACE MOUNT TECHNOLOGY OPERATOR rw1 Ely Ramirez, PSA PSA jfb Bradly Beebe,SURFACE MOUNT TECHNOLOGY OPERATOR SURFACE MOUNT TECHNOLOGY OPERATOR mf4 Ashely RodriguezRN RN Claudio Frost dpArnie Benjamin, DO cs11 McLnathaniel, Susannah, SYSTEMS PROTECTION TECHNICIAN SYSTEMS PROTECTION TECHNICIAN tmm1 Zelalem Albrecht gr2 Fanta Stevens RN RN ko2 Beck, Gabriela gjb Chart Complete MTDD
--- NOTE | 2016-07-27 21:10 | EDDOCDS ---
Physician Documentation [facility] Name: Eryn Maldonado Age: 21 yrs Sex: Female : 1995 Arrival Date: 07/24/2016 Time: 23:[address] MD: Trevin Quintero MD Disposition: 07/25/16 17:20 Transfer ordered to [facility]. Diagnosis is Suicidal ideations. - Reason for transfer: Higher level of care. - Accepting physician is Dr. Taylor. - Condition is Unchanged. - Problem is new. - Symptoms are unchanged. Historical: - Allergies: no known allergies; - Home Meds: 1. was on prozac but quit taking 2 months ago - PMHx: none; - PSHx: none; - Immunization history:: Last tetanus immunization: unknown. - Family history: Not pertinent. - Social history: Smoking status: Patient uses tobacco products, light tobacco smoker. No barriers to communication noted, The patient speaks fluent Latvian. - : The pt / caregiver states he / she is not on anticoagulants. Home medication list is obtained from the patient. - Exposure Risk Screening:: None identified. 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 2 in. (157.48 cm) (R); Pain 6/10; 07/25 06:28 BP 109 / 57; Pulse 88; Resp 16; Temp 98.3(TE); Pulse Ox 96% on R/A; Pain 0/10; rw1 11:08 BP 136 / 74; Pulse 86; Resp 16; Temp 97.4(O); Pulse Ox 98% on R/A; Pain 0/10; bcj 19:39 BP 103 / 61; Pulse 79; Resp 16; Temp 97.2(O); Pain 8/10; mf4 07/24 23:58 Body Mass Index 29.26 (72.57 kg, 157.48 cm) gr2 Procedures: 01:02 Laceration repair:. cs11 Laceration: 01:02 Wound Repair of 6.0cm ( 2.4in ) full thickness laceration to left arm. Distal cs11 neuro/vascular/tendon intact. Anesthesia: Local anesthetic administered with 3.0 mls of 1% lidocaine. Wound prep: Moderate cleansing with betadine by provider. Skin closed with 0 Silk using Running sutures. Patient tolerated well. MDM: 00:16 Consult PFS/PSA/Rodding Machine Tender ordered. cs11 00:16 Consult PFS/PSA/Rodding Machine Tender: Patient's case requires discussion with on-call cs11 Psychiatrist ordered. 00:16 PSA/PFS to call Nursing Fisheries Director, to enter patient data on [place] if patient cs11 involuntarily admitted or transferred for SI or HI ordered. 00:16 Confirm accurate psychiatric medication list and times of last dosage ordered. cs11 00:16 Detain Pt Until Medically/PFS Cleared ordered. cs11 00:17 Acetaminophen Level Ordered. EDMS 00:17 Basic Metabolic Profile Ordered. EDMS 00:17 Complete Blood Count Ordered. EDMS 00:17 Drug Eval Toxicology ED Only Ordered. EDMS 00:17 Ethyl Alcohol (ethanol) Ordered. EDMS 00:17 HCG,Serum Qualitative Ordered. EDMS 00:17 Liver Profile Ordered. EDMS 00:17 Salicylate Level Ordered. EDMS 00:17 Thyroid Stimulating Hormone Ordered. EDMS 00:23 Financial registration complete. pm4 00:55 [facility] Payment Agreement was scanned into [employer] and attached to record. gjb 00:59 Tetanus- Diptheria-Acellular Pertussis 0.5 ml IM once; Routine booster 10-64yrs, >64 cs11 with child contact [employer] ordered. 02:17 Consult PFS/PSA/Rodding Machine Tender complete. jfb 02:17 Consult PFS/PSA/Rodding Machine Tender: Patient's case requires discussion with on-call b Psychiatrist complete. 02:17 PSA/PFS to call Nursing Fisheries Director, to enter [place] if patient jfb involuntarily admitted or transferred for SI or HI complete. 03:34 Acetaminophen Level Reviewed. cs11 03:34 Basic Metabolic Profile Reviewed. cs11 03:34 Complete Blood Count Reviewed. cs11 03:34 Liver Profile Reviewed. cs11 03:34 Salicylate Level Reviewed. cs11 03:34 Drug Eval Toxicology ED Only Reviewed. cs11 03:34 Ethyl Alcohol (ethanol) Reviewed. cs11 03:34 HCG,Serum Qualitative Reviewed. cs11 03:34 Thyroid Stimulating Hormone Reviewed. cs11 03:35 Consult PFS/PSA/Socail Worker: Cleared medically for eval ordered. cs11 03:36 Consult PFS/PSA/Socail Worker: Cleared medically for eval complete. jfb 04:04 REGULAR DIET PLASTIC HARRIS+DIET ordered. EDMS 11:21 REGULAR DIET PLASTIC HARRIS+DIET ordered. EDMS 14:32 ECG WITH READING ER PHYS+CARDIAG ordered. EDMS 16:50 REGULAR DIET PLASTIC HARRIS+DIET ordered. EDMS 07/26 09:07 T-Sheet-- Draft Copy was scanned into [employer] and attached to record. gb 09:07 ECG/EKG was scanned into [employer] and attached to record. gb Administered Medications: 07/25 01:30 Drug: Tetanus- Diptheria-Acellular Pertussis 0.5 ml [diphth,pertussis(acel),tetanus 2.5 rw1 Lf unit-8 mcg-5 Lf/0.5mL IM syringe (0.5 mL)] {School Bus Operator: [employer]. Exp: 08/05/2018. Lot #: [id number]. } Route: IM; Site: right deltoid; 04:03 Follow up: Response: No Adverse Reaction rw1 Signatures: Dispatcher [employer] Rosa Hinkle MD MD sd1 Janet Clifford RN RN jan Peters, Mary, RN RN mcp Barnhardt, Gloria, Reg Reg gb Neeraj Valdes,BATTERY LOADER BATTERY LOADER rw1 Ely Ramirez PSA PSA jfArnie Pierre, DO cs11 Nichelle Cornejo gjb Danny Olivo, Reg Reg pm4 The chart was reviewed and I authenticate all verbal orders and agree with the evaluation and treatment provided.Attachments: 00:55 [facility] Payment Agreement gjb 07/26 09:07 T-Sheet-- Draft Copy gb 09:07 ECG/EKG gb Chart Complete MTDD
--- NOTE | 2016-07-27 21:10 | EDDOCDS ---
Physician Documentation [facility] Name: Eryn Maldonado Age: 21 yrs Sex: Female : 1995 Arrival Date: 07/24/2016 Time: 23:[address] MD: Trevin Quintero MD Disposition: 07/25/16 17:[address] [facility]. Diagnosis is Suicidal ideations. - Reason for transfer: Higher level of care. - Accepting physician is Dr. Taylor. - Condition is Unchanged. - Problem is new. - Symptoms are unchanged. Historical: - Allergies: no known allergies; - Home Meds: 1. was on prozac but quit taking 2 months ago - PMHx: none; - PSHx: none; - Immunization history:: Last tetanus immunization: unknown. - Family history: Not pertinent. - Social history: Smoking status: Patient uses tobacco products, light tobacco smoker. No barriers to communication noted, The patient speaks fluent Djiboutian. - : The pt / caregiver states he / she is not on anticoagulants. Home medication list is obtained from the patient. - Exposure Risk Screening:: None identified. 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 2 in. (157.48 cm) (R); Pain 6/10; 07/25 06:28 BP 109 / 57; Pulse 88; Resp 16; Temp 98.3(TE); Pulse Ox 96% on R/A; Pain 0/10; rw1 11:08 BP 136 / 74; Pulse 86; Resp 16; Temp 97.4(O); Pulse Ox 98% on R/A; Pain 0/10; bcj 19:39 BP 103 / 61; Pulse 79; Resp 16; Temp 97.2(O); Pain 8/10; mf4 07/24 23:58 Body Mass Index 29.26 (72.57 kg, 157.48 cm) gr2 Procedures: 01:02 Laceration repair:. cs11 Laceration: 01:02 Wound Repair of 6.0cm ( 2.4in ) full thickness laceration to left arm. Distal cs11 neuro/vascular/tendon intact. Anesthesia: Local anesthetic administered with 3.0 mls of 1% lidocaine. Wound prep: Moderate cleansing with betadine by provider. Skin closed with 0 Silk using Running sutures. Patient tolerated well. MDM: 00:16 Consult PFS/PSA/Welding Machine Operator Electron Beam ordered. cs11 00:16 Consult PFS/PSA/Welding Machine Operator Electron Beam: Patient's case requires discussion with on-call cs11 Psychiatrist ordered. 00:16 PSA/PFS to call Nursing Home And Family Living Professor, to enter [place] if patient cs11 involuntarily admitted or transferred for SI or HI ordered. 00:16 Confirm accurate psychiatric medication list and times of last dosage ordered. cs11 00:16 Detain Pt Until Medically/PFS Cleared ordered. cs11 00:17 Acetaminophen Level Ordered. EDMS 00:17 Basic Metabolic Profile Ordered. EDMS 00:17 Complete Blood Count Ordered. EDMS 00:17 Drug Eval Toxicology ED Only Ordered. EDMS 00:17 Ethyl Alcohol (ethanol) Ordered. EDMS 00:17 HCG,Serum Qualitative Ordered. EDMS 00:17 Liver Profile Ordered. EDMS 00:17 Salicylate Level Ordered. EDMS 00:17 Thyroid Stimulating Hormone Ordered. EDMS 00:23 Financial registration complete. pm4 00:55 [facility] Payment Agreement was scanned into [employer] and attached to record. gjb 00:59 Tetanus- Diptheria-Acellular Pertussis 0.5 ml IM once; Routine booster 10-64yrs, >64 cs11 with child contact [employer] ordered. 02:17 Consult PFS/PSA/Welding Machine Operator Electron Beam complete. jfb 02:17 Consult PFS/PSA/Welding Machine Operator Electron Beam: Patient's case requires discussion with on-call b Psychiatrist complete. 02:17 PSA/PFS to call Nursing Home And Family Living Professor, to enter [place] if patient jfb involuntarily admitted or transferred for SI or HI complete. 03:34 Acetaminophen Level Reviewed. cs11 03:34 Basic Metabolic Profile Reviewed. cs11 03:34 Complete Blood Count Reviewed. cs11 03:34 Liver Profile Reviewed. cs11 03:34 Salicylate Level Reviewed. cs11 03:34 Drug Eval Toxicology ED Only Reviewed. cs11 03:34 Ethyl Alcohol (ethanol) Reviewed. cs11 03:34 HCG,Serum Qualitative Reviewed. cs11 03:34 Thyroid Stimulating Hormone Reviewed. cs11 03:35 Consult PFS/PSA/Socail Worker: Cleared medically for eval ordered. cs11 03:36 Consult PFS/PSA/Socail Worker: Cleared medically for eval complete. jfb 04:04 REGULAR DIET PLASTIC HARRIS+DIET ordered. EDMS 11:21 REGULAR DIET PLASTIC HARRIS+DIET ordered. EDMS 14:32 ECG WITH READING ER PHYS+CARDIAG ordered. EDMS 16:50 REGULAR DIET PLASTIC HARRIS+DIET ordered. EDMS 07/26 09:07 T-Sheet-- Draft Copy was scanned into [employer] and attached to record. gb 09:07 ECG/EKG was scanned into [employer] and attached to record. 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 Exp: 08/05/2018. Lot #: [id number]. } Route: IM; Site: right deltoid; 04:03 Follow up: Response: No Adverse Reaction rw1 Signatures: Dispatcher [employer] Rosa Hinkle MD MD sd1 Janet Clifford RN RN jan Peters, Mary, RN RN mcp Barnhardt, Gloria, Reg Reg gb Neeraj Valdes,GAS WELDING MACHINE OPERATOR GAS WELDING MACHINE OPERATOR rw1 Ely Ramirez PSA PSA jfArnie Pierre, DO cs11 Nichelle Cornejo gjb Danny Olivo, Reg Reg pm4 The chart was reviewed and I authenticate all verbal orders and agree with the evaluation and treatment provided.Attachments: 00:55 [facility] Payment Agreement gjb 07/26 09:07 T-Sheet-- Draft Copy gb 09:07 ECG/EKG gb Chart Complete MTDD
== END 2016-07-25 20:10 ==
LOC: M ED 23:55
DX: S51.812A Laceration without foreign body of left forearm, initial encounter (principal); X78.1XXA Intentional self-harm by knife, initial encounter; Y92.89 Other specified places as the place of occurrence of the external cause; Y93.89 Activity, other specified; Y99.8 Other external cause status
CPT/HCPCS: 12002; 36415; 80048; 80076; 80306; 84443; 84703; 85027; 90471; 90715; 93005; 99285; G0480

== ENCOUNTER → 2016-08-26 | Outpatient (REF) | payer OTHER | LOC: M LAB REF 12:00 | PROVIDERS: ATTEND Physician Assistant | DX: N39.0 Urinary tract infection, site not specified (principal) ==

== ENCOUNTER → 2016-10-13 | Outpatient (REF) | payer OTHER ==
[~2016-10-13] MED LIST changes: -COLA100C PO; +COLA100C3 PO
== END ==
LOC: M LAB REF 13:09
PROVIDERS: ATTEND Physician Assistant
DX: J02.9 Acute pharyngitis, unspecified (principal)

== ENCOUNTER → 2016-11-24 | Outpatient (REF) | payer OTHER ==
[2016-11-24 20:26] LABS: MEAN CORPUSCULAR HEMOGLOBIN 33.1 pg (27.0-33.0); MEAN CORPUSCULAR HGB CONC 33.3 g/dl (32.0-36.5); MEAN CORPUSCULAR VOLUME 99.4 fl (80.0-96.0); RED CELL DISTRIBUTION WIDTH 11.9 % (11.5-14.5)
[2016-11-24 20:32] LABS: FREE T4 0.97 NG/DL (0.76-1.46)
== END ==
LOC: M SFHCLERA 15:15
PROVIDERS: ATTEND Family Medicine
DX: T14.8 Other injury of unspecified body region (principal); F32.1 Major depressive disorder, single episode, moderate; X58.XXXA Exposure to other specified factors, initial encounter; Y92.89 Other specified places as the place of occurrence of the external cause; Y93.89 Activity, other specified; Y99.8 Other external cause status

== ENCOUNTER → 2018-07-25 | Outpatient (REF) | payer OTHER ==
[~2018-07-25] MED LIST changes: -ACET50TA PO; -COLA100C3 PO; +COLA100C5 PO; +MAPA500T2 PO
[2018-07-25 21:14] LABS: CHLAMYDIA DNA AMPLIFICATION POSITIVE (NEGATIVE); GC DNA AMPLIFICATION NEGATIVE (NEGATIVE)
== END ==
LOC: M LAB REF 17:12
PROVIDERS: ATTEND Specialist
DX: Z11.3 Encounter for screening for infections with a predominantly sexual mode of transmission (principal)

== ENCOUNTER → 2018-09-19 | Outpatient (REF) | payer OTHER | LOC: M LAB REF 17:28 | PROVIDERS: ATTEND Specialist | DX: R87.612 Low grade squamous intraepithelial lesion on cytologic smear of cervix (LGSIL) (principal) ==

== ENCOUNTER → 2019-05-30 | Outpatient (REF) | payer OTHER | LOC: M SFHCWAGY 13:28 | PROVIDERS: ATTEND Specialist | DX: R87.612 Low grade squamous intraepithelial lesion on cytologic smear of cervix (LGSIL) (principal) ==

== ENCOUNTER → 2019-07-31 | Outpatient (REF) | payer OTHER | LOC: M SFHCWAGY 09:41 | PROVIDERS: ATTEND Specialist | DX: N87.1 Moderate cervical dysplasia (principal) ==

== ENCOUNTER → 2019-12-24 | Outpatient (CLI) | payer OTHER | LOC: M LABSMTC 13:35 | PROVIDERS: ATTEND Family Medicine | DX: Z11.59 Encounter for screening for other viral diseases (principal) | CPT/HCPCS: C9803; U0003 ==

== ENCOUNTER → 2020-03-12 | Outpatient (CLI) | payer OTHER ==
[2020-03-12 09:19] LABS: PROGESTERONE 1.05 NG/ML; PROLACTIN 9.2 NG/ML
== END ==
LOC: M LAB 06:51
PROVIDERS: ATTEND Specialist
DX: N92.6 Irregular menstruation, unspecified (principal)

== ENCOUNTER → 2020-07-24 | Outpatient (REF) | payer OTHER ==
[2020-07-24 13:47] LABS: BASO % 0.3 % (0.0-1.0); EOS # 0.1 10^3/uL (0.0-0.5); EOS % 1.4 % (0.0-3.0); HEMATOCRIT 43.3 % (36.0-47.0); HEMOGLOBIN 14.5 g/dl (12.0-15.5); LYMPH # 1.9 10^3/uL (1.5-5.0); LYMPH % 32.7 % (24.0-44.0); MEAN CORPUSCULAR HEMOGLOBIN 33.3 pg (27.0-33.0); MEAN CORPUSCULAR HGB CONC 33.5 g/dl (32.0-36.5); MEAN CORPUSCULAR VOLUME 99.5 fl (80.0-96.0); MONO # 0.4 10^3/uL (0.0-0.8); NEUTROPHILS # 3.4 10^3/uL (1.5-8.5); NEUTROPHILS % 58.4 % (36.0-66.0); PLATELET COUNT, AUTOMATED 314 10^3/uL (150-450); RED BLOOD COUNT 4.35 10^6/uL (4.00-5.40); WHITE BLOOD COUNT 5.9 10^3/uL (4.0-10.0)
[2020-07-24 14:22] LABS: FOLATE 12.9 NG/ML
== END ==
LOC: M PLALAB 11:40
PROVIDERS: ATTEND Advanced Practice Midwife
DX: N92.1 Excessive and frequent menstruation with irregular cycle (principal); D75.89 Other specified diseases of blood and blood-forming organs

== ENCOUNTER → 2020-07-28 | Outpatient (REF) | payer OTHER | LOC: M PLALAB 08:07 | PROVIDERS: ATTEND Advanced Practice Midwife | DX: O20.9 Hemorrhage in early pregnancy, unspecified (principal) ==

== ENCOUNTER → 2020-08-04 | Outpatient (REF) | payer OTHER | LOC: M PLALAB 13:45 | PROVIDERS: ATTEND Advanced Practice Midwife | DX: O20.0 Threatened abortion (principal) ==

== ENCOUNTER → 2020-08-06 | Outpatient (REF) | payer OTHER ==
[~2020-08-06] MED LIST changes: +PREN1CHW6 PO
== END ==
LOC: M PLALAB 12:00
PROVIDERS: ATTEND Advanced Practice Midwife
DX: O20.0 Threatened abortion (principal)

== ENCOUNTER 2020-08-07 19:26 | Emergency (ER) | payer OTHER ==
[~2020-08-07] VITALS: Ht 160 cm; Wt 82.2 kg
[~2020-08-07 19:26] MED LIST changes: -PREN1CHW6 PO
[2020-08-07] MEDS ORDERED: PREN1CHW6 PO (19:35)
--- OUTSIDE RECORDS SUMMARY | 2020-08-07 19:35 | CCD ---
Author Author [facility] Organization [facility] Address Unknown Phone Unavailable Care Team Providers Care Polymer Materials Consultant Name Role Phone Nay Rodriguez Unavailable PROBLEMS Type Condition ICD9-CM Code [id number] Code Onset Dates Condition S tatus W/U Status Risk SNOMED Code Notes Problem History of intentional self-harm Z91.5 Active conf irmed 258808806 Problem Moderate single current episode of major depressive disord er F32.1 Active confirmed 35095554 Problem Macrocytosis D75.89 Active confirmed 9402738 00 Problem Menometrorrhagia N92.1 Active confirmed 314 188623 Problem Missed menses N92.6 Active confirmed 965576 00 Problem Migraine without aura and without status migrain osus, not intractable G43.009 Active confirmed 139413173 Problem Dysmenorrhea N94.6 Active confirmed 7173783 00 Problem Intrinsic eczema L20.84 Active confirmed 240 33789 ALLERGIES No Known Allergies ENCOUNTERS from 1995 to 2020-07-29 Encounter Location Date Provider Diagnosis [facility] [address] [place] [id number] Jul, Nay Rodriguez IMMUNIZATIONS Vaccine Route Administration Date Status Influenza (18 yrs & older) Flublok IM Intramuscular Apr 27, 2019 Administered Influenza (6mo & up) Fluzone Unknown Mar 03, 2015 Ref used SOCIAL HISTORY Tobacco Use: Social History Observation Description Date Details (start date - stop date) Current Smoker Sex Assigned At : Social History Observation Description Sex Assigned At Unknown Education: Question Answer Notes Level of Education: High School Audit Question Answer Notes Total Score: 3 Interpretation: Alcohol Education Language: Question Answer Notes Languages spoken: Lao Voodoo: Question Answer Notes Voodoo 33 None Domestic Violence: Question Answer Notes Status: Single No history of abuse Sexual Hx: Question Answer Notes Had sex in the last 12 months (vaginal, oral, or anal)? Yes LMP: Jun 15, 2019 Have you ever had an STD? Yes with Men only Use protection? No Chlamydia? Yes Drug and Alcohol Question Answer Notes Total Score: 0 Interpretation: No problems reported Alcohol Screening: Question Answer Notes Did you have a drink containing alcohol in the past year? Ye s Points 2 Interpretation Negative How often did you have six or more drinks on one occas ion in the past year? Never (0 points) How many drinks did you have on a typica l day when you were drinking in the past year? 3 or 4 (1 point) How often did you have a drink containing alcohol in t he past year? Monthly or less (1 point) Tobacco Use: Question Answer Notes Are you a: current smoker How many cigarettes a day do you smoke? 5 or less REASON FOR REFERRAL No Information VITAL SIGNS No information MEDICATIONS Medication SIG (Take, Route, Frequency, Duration) Notes Start Da te End Date Status Sumatriptan Succinate 50 MG 1 tablet at least 2 hours between doses as needed Orally Twice a day (prn for migraines) for 30 Days Apr, Not-Taking Triamcinolone Acetonide 0.1 % 1 application Externally to affected area Twice a day for 10 day(s) Jul, Active Naproxen 500 MG 1 tablet Orally Twice a day for 30 day(s) Jul, Not-Taking HydrOXYzine HCl 25 MG 1 tablet as needed Orally every 8 hrs for 10 day(s) Jun, Active Sprintec 28 0.25-35 MG-MCG TAKE 1 TABLET BY MOUTH ONCE DAILY Oral for 84 Not-Taking PROCEDURES No Information RESULTS No Results REASON FOR VISIT results MEDICAL (GENERAL) HISTORY Type Description Date Medical History depression with hx of self harm Surgical History No know Surgical history Hospitalization History 4 days for cutting herself 2016 Hospitalization History Childbirth Goals Section No Information Health Concerns No Information MEDICAL EQUIPMENT No Information MENTAL STATUS No Information FUNCTIONAL STATUS No Information ASSESSMENTS No Information PLAN OF TREATMENT No Information Insurance Providers Payer Name Payer Address Payer Phone Insured Name Patient Relati onship to Insured Coverage Start Date Coverage End Date [facility] [id number] [phone] XAVIER DANIEL self
--- OUTSIDE RECORDS SUMMARY | 2020-08-07 19:35 | CCD ---
Author Author [facility] Organization [facility] Address Unknown Phone Unavailable Care Team Providers Care Nail Setter Name Role Phone Mikki Raymundo Unavailable PROBLEMS Type Condition ICD9-CM Code [id number] Code Onset Dates Condition S tatus W/U Status Risk SNOMED Code Notes Problem History of intentional self-harm Z91.5 Active conf irmed 059267519 Problem Moderate single current episode of major depressive disord er F32.1 Active confirmed 09682709 Problem Macrocytosis D75.89 Active confirmed 1335669 00 Problem Menometrorrhagia N92.1 Active confirmed 314 532913 Problem Missed menses N92.6 Active confirmed 465112 00 Problem Migraine without aura and without status migrain osus, not intractable G43.009 Active confirmed 934349037 Problem Dysmenorrhea N94.6 Active confirmed 4483428 00 Problem Intrinsic eczema L20.84 Active confirmed 240 85539 ALLERGIES No Known Allergies ENCOUNTERS from 1995 to 2020-08-05 Encounter Location Date Provider Diagnosis [facility] [address] [place] [id number] Jul, Mikki Raymundo Threatened O20.0 IMMUNIZATIONS Vaccine Route Administration Date Status Influenza [...] Education Language: Question Answer Notes Languages spoken: Salvadorean Buddhist: Question Answer Notes Buddhist 33 None Domestic Violence: Question Answer Notes Status: Single No history of abuse Sexual Hx: Question Answer Notes Had sex in the last 12 months (vaginal, oral, or anal)? Yes LMP: Jun 15, 2019 Have you ever had an STD? Yes with Men only Use protection? No Chlamydia? Yes Drug and Alcohol Question Answer Notes Interpretation: No problems reported Total Score: 0 Alcohol Screening: Question Answer Notes Did you [...] Information RESULTS No Results REASON FOR VISIT No Information MEDICAL (GENERAL) HISTORY Type Description Date Medical History depression with hx of self harm Surgical History No know Surgical history Hospitalization History 4 days for cutting herself 2016 Hospitalization History Childbirth Goals Section No Information Health Concerns No Information MEDICAL EQUIPMENT No Information MENTAL STATUS No Information FUNCTIONAL STATUS No Information ASSESSMENTS Encounter Date Diagnosis Assessment Notes Treatment Notes Treatm ent Clinical Notes Jul, Threatened (ICD-10 - O20.0) PLAN OF TREATMENT Treatment Notes Test Name Order Date HCG, SERUM QUANTITATIVE 2020-08-04 Next Appt Details Provider Name:Nay Magallanes Michael, 2020-08-27 08:40:00 AM, [address] [place], [address], Insurance Providers Payer Name Payer Address Payer Phone Insured Name Patient Relati onship to Insured Coverage Start Date Coverage End Date [facility] [address] [facility] [phone] XAVIER DANIEL self
--- OUTSIDE RECORDS SUMMARY | 2020-08-07 19:35 | CCD ---
Author Author [facility] Organization [facility] Address Unknown Phone Unavailable Care Team Providers Care Boat Canvas Maker And Installer Name Role Phone Prasanna Macy Unavailable PROBLEMS Type Condition ICD9-CM Code [id number] Code Onset Dates Condition S tatus W/U Status Risk SNOMED Code Notes Problem History of intentional self-harm Z91.5 Active conf irmed 899665414 Problem Moderate single current episode of major depressive disord er F32.1 Active confirmed 77807922 Problem Macrocytosis D75.89 Active confirmed 3710670 00 Problem Menometrorrhagia N92.1 Active confirmed 314 529268 Problem Missed menses N92.6 Active confirmed 302595 00 Problem Migraine without aura and without status migrain osus, not intractable G43.009 Active confirmed 700936758 Problem Dysmenorrhea N94.6 Active confirmed 9402439 00 Problem Intrinsic eczema L20.84 Active confirmed 240 85528 ALLERGIES No Known Allergies ENCOUNTERS from 1995 to 2020-08-05 Encounter Location Date Provider Diagnosis [facility] [address] [place] [address] Jul, Macy Mims IMMUNIZATIONS Vaccine Route Administration Date Status Influenza [...] Education Language: Question Answer Notes Languages spoken: [place] Congregational: Question Answer Notes Congregational 33 None Domestic Violence: Question Answer Notes [...] Information RESULTS No Results REASON FOR VISIT peripheral smear MEDICAL (GENERAL) HISTORY Type Description Date Medical History depression with hx of self harm Surgical History No know Surgical history Hospitalization History 4 days for cutting herself 2016 Hospitalization History Childbirth Goals Section No Information Health Concerns No Information MEDICAL EQUIPMENT No Information MENTAL STATUS No Information FUNCTIONAL STATUS No Information ASSESSMENTS No Information PLAN OF TREATMENT Next Appt Details Provider Name:Nay Magallanes Michael 2020-08-27 08:40:00 AM, [address] [place], [address], Insurance Providers Payer Name Payer Address Payer Phone Insured Name Patient Relati onship to Insured Coverage Start Date Coverage End Date [facility] [address] [facility] [phone] XAVIER DANIEL self
--- OUTSIDE RECORDS SUMMARY | 2020-08-07 19:35 | CCD ---
Author Author [facility] Organization [facility] Address Unknown Phone Unavailable Care Team Providers Care Communications Marketing Intern Name Role Phone Nay Rodriguez Unavailable PROBLEMS Type Condition ICD9-CM Code [id number] Code Onset Dates Condition S tatus W/U Status Risk SNOMED Code Notes Problem History of intentional self-harm Z91.5 Active conf irmed [id number] Problem Moderate single current episode of major depressive disord er F32.1 Active confirmed 88574417 Problem Macrocytosis D75.89 Active confirmed 2647191 00 Problem Menometrorrhagia N92.1 Active confirmed 314 073360 Problem Missed menses N92.6 Active confirmed 771589 00 Problem Migraine without aura and without status migrain osus, not intractable G43.009 Active confirmed 542682403 Problem Dysmenorrhea N94.6 Active confirmed 1914235 00 Problem Intrinsic eczema L20.84 Active confirmed 240 38870 ALLERGIES No Known Allergies ENCOUNTERS from 1995 to 2020-07-30 Encounter Location Date Provider Diagnosis [facility] [address] [place] [id number] Jul, Nay Rodriguez Menometrorrhagia N92 .1 IMMUNIZATIONS Vaccine Route Administration Date Status Influenza [...] Education: High School Audit Question Answer Notes Interpretation: Alcohol Education Total Score: 3 Language: Question Answer Notes Languages spoken: Indonesian Mandaen: Question Answer Notes Mandaen 33 None Domestic Violence: Question Answer Notes [...] REASON FOR REFERRAL No Information VITAL SIGNS Weight 184.8 lbs Jul, Height 64 in Jul, BMI 31.72 kg/m2 Jul, Blood pressure systolic 132 mm Hg Jul, Blood pressure diastolic 80 mm Hg Jul, MEDICATIONS Medication SIG (Take, Route, Frequency, Duration) [...] for 84 Not-Taking PROCEDURES No Information RESULTS Component Value Reference Range HCG, SERUM QUANTITATIVE Reviewed date:07/24/2020 16:55:38 Interpretation: Performing Lab:[facility], [facility] [address] [address] , ,[place] [address] HCG, SERUM QUANTITATIVE 14 Pathology Request For Service Reviewed date:07/28/2020 13:35:00 Interpretation: Performing Lab:[facility], [facility] [address] [facility] [id number] , ,[place] [address] PERIPHERAL SMEAR-PATH REVIEW [facility] US PELVIC NON-OB COMPLETE Reviewed date:07/28/2020 15:13:10 Interpretation: Performing Lab:[facility], [place] [address] REASON FOR VISIT Per Nay; Heavy bleeding MEDICAL (GENERAL) HISTORY Type Description Date Medical [...] Treatment Notes Treatm ent Clinical Notes Jul, Menometrorrhagia (ICD-10 - N92.1) Reviewed potential causes of heavy bleeding including but not limited to: leimyomas, adenomyosis, endometrial and endocervical polyps, endometrial hyperplasia, cervical or endometrial cancers, hypothalmic-pituitary ovarian disturbances, bleeding disorders, systemic diseases (early renal failure, hepatic disease, adrenal hyperplasia, and thyroid dysfunction), medications (anticoagulants, aspirin, NSAIDs, some anticonvulsants, digitalis), physical- trauma, extreme stress, or obesity. Reviewed this could be an early . If hcg level is negative then she can follow throught with pelvic ultrasound and we will given Provera to help with heavy bleeding. PLAN OF TREATMENT Treatment Notes Assessment Notes Clinical Notes Menometrorrhagia Reviewed potential causes of heavy bleeding including but not limited to: leimyomas, adenomyosis, endometrial and endocervical polyps, endometrial hyperplasia, cervical or endometrial cancers, hypothalmic-pituitary ovarian disturbances, bleeding disorders, systemic diseases (early renal failure, hepatic disease, adrenal hyperplasia, and thyroid dysfunction), medications (anticoagulants, aspirin, NSAIDs, some anticonvulsants, digitalis), physical-trauma, extreme stress, or obesity.Reviewed this could be an early . If hcg level is negative then she can fo llow throught with pelvic ultrasound and we will given Provera to help with heavy bleeding. Next Appt Details prn Reason: Provider Name:Nay Magallanes Michael, 2020-08-27 08:40:00 AM, [address] [place], [address], Insurance Providers Payer Name Payer Address Payer Phone Insured Name Patient Relati onship to Insured Coverage Start Date Coverage End Date [facility] [address] [facility] [phone] XAVIER DANIEL self
--- OUTSIDE RECORDS SUMMARY | 2020-08-07 19:36 | CCD ---
Author Author [facility] Organization [facility] Address Unknown Phone Unavailable Care Team Providers Care Computer Clerk Name Role Phone Prasanna, Macy Unavailable PROBLEMS Type Condition ICD9-CM Code [id number] Code Onset Dates Condition S tatus W/U Status Risk SNOMED Code Notes Problem History of intentional self-harm Z91.5 Active conf irmed [id number] Problem Moderate single current episode of major depressive disord er F32.1 Active confirmed 32612768 Problem Macrocytosis D75.89 Active confirmed 6437182 00 Problem Menometrorrhagia N92.1 Active confirmed 314 293867 Problem Missed menses N92.6 Active confirmed 488477 00 Problem Migraine without aura and without status migrain osus, not intractable G43.009 Active confirmed 998264052 Problem Dysmenorrhea N94.6 Active confirmed 0480541 00 Problem Intrinsic eczema L20.84 Active confirmed 240 62614 ALLERGIES No Known Allergies ENCOUNTERS from 1995 to 2020-07-26 Encounter Location Date Provider Diagnosis [facility] [address] [place] [address], Macy Mims Intrinsic eczema L20.84 and Macrocytosis D75.89 IMMUNIZATIONS Vaccine Route Administration Date Status Influenza [...] Education Language: Question Answer Notes Languages spoken: Wolof Restoration: Question Answer Notes Restoration 33 None Domestic Violence: Question Answer Notes [...] FOR REFERRAL No Information VITAL SIGNS Weight 182.2 lbs Jun, Height 64 in Jun, BMI 31.27 kg/m2 Jun, Heart Rate 94 /min Jun, Respiratory Rate 17 /min Jun, Temperature 99.2 degrees Fahrenheit Jun, Oximetry 97 Jun, Blood pressure systolic 143 mm Hg Jun, Blood pressure diastolic 85 mm Hg Jun, MEDICATIONS Medication SIG (Take, Route, Frequency, Duration) [...] Information RESULTS No Results REASON FOR VISIT rash on forearm MEDICAL (GENERAL) HISTORY Type Description Date Medical History depression with hx of self harm Surgical History No know Surgical history Hospitalization History 4 days for cutting herself 2016 Hospitalization History Childbirth Goals Section No Information Health Concerns No Information MEDICAL EQUIPMENT No Information MENTAL STATUS No Information FUNCTIONAL STATUS No Information ASSESSMENTS Encounter Date Diagnosis Assessment Notes Treatment Notes Treatm ent Clinical Notes Jun, Intrinsic eczema (ICD-10 - L20.84) You have eczema which is dry skin. This is likely due to cold, dry weather or allergies. Supportive care, apply hydrocortisone cream in very small amounts, maintain adequate fluid hydration, keep skin moisturized with CeraVe, Cetaphil, Vaseline or Eucerin lotions. Using a steroid cream such as hydrocortisone for longer than 2 weeks may result in thinning and/or discoloration of the skin. Follow up with your PCP in 1 week if symptoms persist. Go to the ER for new or worsening symptoms. Jun, Macrocytosis (ICD-10 - D75.89) Noted on previous labs 12/2019, plan repeat today w/ further eval. Labs ordered, pending disposition. Pt denies excessive etoh. PLAN OF TREATMENT Treatment Notes Assessment Notes Clinical Notes Intrinsic eczema You have eczema whic h is dry skin. This is likely due to cold, dry weather or allergies. Supportive care, apply hydrocortisone cream in very small amounts, maintain adequate fluid hydration, keep skin moisturized with CeraVe, Cetaphil, Vaseline or Eucerin lotions. Using a steroid cream such as hydrocortisone for longer than 2 weeks may result in thinning and/or discoloration of the skin. Follow up with your PCP in 1 week if symptoms persist. Go to the ER for new or worsening symptoms. Macrocytosis Noted on previous la bs 12/2019, plan repeat today w/ further eval. Labs ordered, pending disposition. Pt denies excessive etoh. Treatment Notes Test Name Order Date CBC with Differential 2020-07-24 PERIPH SMEAR FOR PATH REVIEW 2020-07-24 VITB12 & FOL 2020-07-24 Next Appt Details 1 Week, non-resolving Reason: Insurance Providers Payer Name Payer Address Payer Phone Insured Name Patient Relati onship to Insured Coverage Start Date Coverage End Date [facility] [address] [facility] [phone] XAVIER DANIEL self
--- OUTSIDE RECORDS SUMMARY | 2020-08-07 19:36 | CCD ---
Author Author [facility] Organization [facility] Address Unknown Phone Unavailable Care Team Providers Care Toy Stuffer Name Role Phone Nay Rodriguez Unavailable PROBLEMS Type Condition ICD9-CM Code LYL46-HA Code Onset Dates Condition S tatus W/U Status Risk SNOMED Code Notes Problem History of intentional self-harm Z91.5 Active conf irmed 448447676 Problem Moderate single current episode of major depressive disord er F32.1 Active confirmed 20705758 Problem Macrocytosis D75.89 Active confirmed 1878672 00 Problem Menometrorrhagia N92.1 Active confirmed 314 382126 Problem Missed menses N92.6 Active confirmed 706053 00 Problem Migraine without aura and without status migrain osus, not intractable G43.009 Active confirmed 332126051 Problem Dysmenorrhea N94.6 Active confirmed 9447743 00 Problem Intrinsic eczema L20.84 Active confirmed 240 20345 ALLERGIES No Known Allergies ENCOUNTERS from 1995 to 2020-07-26 Encounter Location Date Provider Diagnosis [facility] [address] [place] [phone] Jul, Nay Rodriguez Bleeding in early pr egnancy O20.9 IMMUNIZATIONS Vaccine Route Administration Date Status Influenza [...] Education Language: Question Answer Notes Languages spoken: Mosotho Orthodoxy: Question Answer Notes Orthodoxy 33 None Domestic Violence: Question Answer Notes [...] Information RESULTS No Results REASON FOR VISIT hcg results MEDICAL (GENERAL) HISTORY Type Description Date [...] Treatment Notes Treatm ent Clinical Notes Jul, Bleeding in early (ICD-10 - O20.9) PLAN OF TREATMENT Treatment Notes Test Name Order Date HCG, SERUM QUANTITATIVE 2020-07-24 Insurance Providers Payer Name Payer Address Payer Phone Insured Name Patient Relati onship to Insured Coverage Start Date Coverage End Date PENDING SALE [facility] [address] [facility] [address] [phone] XAVIER DANIEL self
--- OUTSIDE RECORDS SUMMARY | 2020-08-07 19:36 | CCD ---
Author Author [facility] Organization [facility] Address Unknown Phone Unavailable Care Team Providers Care Glove Maker Name Role Phone Dony Trevizo Unavailable PROBLEMS Type Condition ICD9-CM Code [id number] Code Onset Dates Condition S tatus W/U Status Risk SNOMED Code Notes Problem History of intentional self-harm Z91.5 Active conf irmed 573385547 Problem Moderate single current episode of major depressive disord er F32.1 Active confirmed 85387840 Problem Macrocytosis D75.89 Active confirmed 1560110 00 Problem Menometrorrhagia N92.1 Active confirmed 314 611738 Problem Missed menses N92.6 Active confirmed 145807 00 Problem Migraine without aura and without status migrain osus, not intractable G43.009 Active confirmed 768590786 Problem Dysmenorrhea N94.6 Active confirmed 9908443 00 Problem Intrinsic eczema L20.84 Active confirmed 240 57982 ALLERGIES No Known Allergies ENCOUNTERS from 1995 to 2020-07-25 Encounter Location Date Provider Diagnosis [facility] [address] [place] [phone] Jul, Dony Trevizo IMMUNIZATIONS Vaccine Route Administration Date Status Influenza [...] Education Language: Question Answer Notes Languages spoken: Bulgarian Shinto: Question Answer Notes Shinto 33 None Domestic Violence: Question Answer Notes [...] Information RESULTS No Results REASON FOR VISIT bleeding concerns MEDICAL (GENERAL) HISTORY Type Description Date Medical [...] Insured Coverage Start Date Coverage End Date [facility] [address] [facility] [phone] XAVIER DANIEL self
--- OUTSIDE RECORDS SUMMARY | 2020-08-07 19:36 | CCD ---
Author Author [facility] Organization [facility] [employer] [facility] Address Unknown Phone Unavailable Care Team Providers Care Personal Property Appraiser Name Role Phone Macy Mims Unavailable PROBLEMS Type Condition ICD9-CM Code BSN29-XF Code Onset Dates Condition S tatus SNOMED Code Notes Problem Migraine without aura and without status migrain osus, not intractable G43.009 Active 004549597 Problem Dysmenorrhea N94.6 Active 638729582 Problem History of intentional self-harm Z91.5 Active 291970094 Problem Moderate single current episode of major depressive disord er F32.1 Active 16735375 Problem Missed menses N92.6 Active 99337067 ALLERGIES No Known Allergies ENCOUNTERS from 1995 to 2020-06-07 Encounter Location Date Provider Diagnosis [facility] [address] [place] [address] Dec, Macy Prasanna Dysmenorrhea N94.6 IMMUNIZATIONS Vaccine Route Administration Date Status Influenza (18 yrs & older) Flublok IM Intramuscular Apr 27, 2019 Administered Influenza (6mo & up) Fluzone Unknown Mar 03, 2015 Ref used SOCIAL HISTORY Tobacco Use: Social History Observation Description Date Details (start date - stop date) Former Smoker Sex Assigned At : Social History Observation Description Sex Assigned At Unknown Education: Question Answer Notes Level of Education: High School Audit Question Answer Notes Total Score: 3 Interpretation: Alcohol Education Language: Question Answer Notes Languages spoken: Syrian Anabaptism: Question Answer Notes Anabaptism 33 None Domestic Violence: Question Answer Notes [...] Use: Question Answer Notes Are you a: former smoker How long has it been since you last smoked? 1-3 months REASON FOR REFERRAL No Information VITAL SIGNS Weight 173 lbs Dec, Height 64 in Dec, BMI 29.69 kg/m2 Dec, Heart Rate 83 /min Dec, Respiratory Rate 18 /min Dec, Temperature 98.0 degrees Fahrenheit Dec, Oximetry 98 Dec, Blood pressure systolic 132 mm Hg Dec, Blood pressure diastolic 64 mm Hg Dec, MEDICATIONS Medication SIG (Take, Route, Frequency, Duration) Notes Start Da te End Date Status Sumatriptan Succinate 50 MG 1 tablet at least 2 hours between doses as needed Orally Twice a day (prn for migraines) for 30 Days Apr, Not-Taking Sprintec 28 0.25-35 MG-MCG TAKE 1 TABLET BY MOUTH ONCE DAILY Oral for 84 Not-Taking Naproxen 500 MG 1 tablet Orally Twice a day for 30 day(s) Jul, Not-Taking PROCEDURES No Information RESULTS REASON FOR VISIT CHECK UP, NO ENERGY. MEDICAL (GENERAL) HISTORY Type Description Date Medical History depression with hx of self harm Surgical History No Surgical history information Hospitalization History 4 days for cutting herself 2016 Hospitalization History Childbirth Goals Section No Information Health Concerns No Information MEDICAL EQUIPMENT No Information MENTAL STATUS No Information FUNCTIONAL STATUS No Information ASSESSMENTS Encounter Date Diagnosis Assessment Notes Treatment Notes Treatm ent Clinical Notes Dec, Dysmenorrhea (ICD-10 - N94.6) Labs for further evalutation, pending disposition. Recommend pt FU w/ OB for fertility consultation. PLAN OF TREATMENT Treatment Notes Assessment Notes Clinical Notes Dysmenorrhea Labs for further marcial lutation, pending disposition. Recommend pt FU w/ OB for fertility consultation. Next Appt Details pending labs Reason: Insurance Providers Payer Name Payer Address Payer Phone Insured Name Patient Relati onship to Insured Coverage Start Date Coverage End Date [facility] [address] [facility] [phone] XAVIER DANIEL self
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
[2020-08-07 23:04] LABS: BASO % 0.3 % (0.0-1.0); EOS # 0.1 10^3/uL (0.0-0.5); EOS % 0.8 % (0.0-3.0); HEMATOCRIT 42.6 % (36.0-47.0); LYMPH # 2.4 10^3/uL (1.5-5.0); LYMPH % 29.6 % (24.0-44.0); MEAN CORPUSCULAR HEMOGLOBIN 32.5 pg (27.0-33.0); MEAN CORPUSCULAR HGB CONC 32.9 g/dl (32.0-36.5); MEAN CORPUSCULAR VOLUME 98.8 fl (80.0-96.0); MONO # 0.5 10^3/uL (0.0-0.8); MONO % 6.4 % (2.0-8.0); NEUTROPHILS % 62.4 % (36.0-66.0); PLATELET COUNT, AUTOMATED 283 10^3/uL (150-450); RED BLOOD COUNT 4.31 10^6/uL (4.00-5.40)
[2020-08-07 23:36] LABS: BLOOD UREA NITROGEN 5 MG/DL (7-18); CARBON DIOXIDE LEVEL 26 MEQ/L (21-32); CHLORIDE LEVEL 106 MEQ/L (98-107); CREATININE FOR GFR 0.73 MG/DL (0.55-1.30); GLOMERULAR FILTRATION RATE > 60.0 (>60); GLUCOSE, FASTING 86 MG/DL (70-100); HCG, SERUM QUANTITATIVE 312 MIU/ML; SODIUM LEVEL 141 MEQ/L (136-145)
--- NOTE | 2020-08-08 00:02 | REPVR ---
PROCEDURE INFORMATION: Exam: US First Trimester, Transabdominal Exam date and time: 08/07/2020 11:36 PM Age: 25 years old Clinical indication: Lmp or gestational age (in weeks): 07/02/2020; Other: Vaginal bleeding, cramping; ; Additional info: Vag bleeding, TECHNIQUE: Imaging protocol: Real-time transabdominal obstetrical ultrasound of the maternal pelvis and a first trimester , less than 14 weeks 0 days, with image documentation. COMPARISON: No relevant prior studies available. FINDINGS: Gestation: No intrauterine gestation. MATERNAL: Uterus: The uterus measures 5.7 cm in its cephalocaudad dimension and 2.8 x 4.2 cm in its AP and lateral dimensions transabdominal. The uterus measures 6.7 cm in its cephalocaudad dimension and 3.3 x 4.2 cm in its AP and lateral dimensions. The endometrium measures 6 mm transvaginal. No intrauterine gestational sac. Cervix: Unremarkable. Right adnexa: The right ovary measures 3.0 x 2.9 x 2.4 cm and demonstrates pulsatile blood flow. Left adnexa: The left ovary measures 3.1 x 2.2 x 2.7 cm and demonstrates pulsatile blood flow. Intraperitoneal space: No intraperitoneal free fluid. IMPRESSION: 1. No intrauterine gestational sac is identified. Findings may reflect recent spontaneous AB. Ectopic is not excluded. Serial beta hCG levels may be of benefit for further evaluation. 2. Otherwise negative pelvic sonogram. No adnexal mass and no free fluid. Electronically signed by: Sonny Reyes On 08/08/2020 00:02:41 AM
[2020-08-08 00:47] VITALS: BP 130/87
== END 2020-08-08 00:48 | disposition home or self-care (01) ==
LOC: M ED 19:26
DX: O26.851 Spotting complicating pregnancy, first trimester (principal); O99.331 Smoking (tobacco) complicating pregnancy, first trimester; F17.200 Nicotine dependence, unspecified, uncomplicated; Z3A.01 Less than 8 weeks gestation of pregnancy

== ENCOUNTER → 2020-08-10 | Outpatient (CLI) | payer OTHER ==
[~2020-08-10] MED LIST changes: +PREN1CHW6 PO
== END ==
LOC: M LAB 09:11
PROVIDERS: ATTEND Internal Medicine
DX: O46.90 Antepartum hemorrhage, unspecified, unspecified trimester (principal); Z3A.00 Weeks of gestation of pregnancy not specified

== ENCOUNTER → 2020-08-19 | Outpatient (REF) | payer OTHER | LOC: M PLALAB 11:53 | PROVIDERS: ATTEND Obstetrics & Gynecology | DX: O03.9 Complete or unspecified spontaneous abortion without complication (principal) ==

== ENCOUNTER → 2020-10-29 | Outpatient (REF) | payer OTHER | LOC: M SFHCWAGY 17:11 | PROVIDERS: ATTEND Obstetrics & Gynecology | DX: Z12.4 Encounter for screening for malignant neoplasm of cervix (principal) ==

== ENCOUNTER → 2021-07-30 | Outpatient (CLI) | payer OTHER ==
[2021-07-30 15:19] LABS: HIV 1&2 SCREEN CENTAUR NEGATIVE (NEGATIVE)
== END ==
LOC: M LAB 13:07
PROVIDERS: ATTEND Dentist General Practice
DX: Z20.9 Contact with and (suspected) exposure to unspecified communicable disease (principal); W46.1XXA Contact with contaminated hypodermic needle, initial encounter

== ENCOUNTER → 2022-01-19 | Outpatient (REF) | payer OTHER ==
[2022-01-19 15:04] LABS: GC DNA AMPLIFICATION NEGATIVE (NEGATIVE)
== END ==
LOC: M SFHCWAGY 12:55
PROVIDERS: ATTEND Obstetrics & Gynecology
DX: Z12.4 Encounter for screening for malignant neoplasm of cervix (principal); Z11.3 Encounter for screening for infections with a predominantly sexual mode of transmission

== ENCOUNTER → 2022-01-27 | Outpatient (CLI) | payer OTHER | LOC: M WHC 11:36 | PROVIDERS: ATTEND Obstetrics & Gynecology | DX: N94.6 Dysmenorrhea, unspecified (principal) ==

== ENCOUNTER → 2022-03-17 | Outpatient (CLI) | payer OTHER ==
[2022-03-17 13:08] LABS: HEPATITIS C VIRUS ABY INDEX < 0.0 INDEX (<0.8); HIV 1&2 SCREEN CENTAUR NEGATIVE (NEGATIVE)
== END ==
LOC: M LAB 10:26
PROVIDERS: ATTEND Dentist General Practice
DX: Z11.59 Encounter for screening for other viral diseases (principal)

== ENCOUNTER → 2022-04-14 | Outpatient (CLI) | payer OTHER ==
[2022-04-14 16:49] LABS: BASO % 0.3 % (0.0-1.0); EOS # 0.1 10^3/uL (0.0-0.5); EOS % 1.2 % (0.0-3.0); HEMATOCRIT 44.1 % (36.0-47.0); HEMOGLOBIN 14.6 g/dl (12.0-15.5); LYMPH # 2.1 10^3/uL (1.5-5.0); LYMPH % 31.8 % (24.0-44.0); MEAN CORPUSCULAR HEMOGLOBIN 34.1 pg (27.0-33.0); MEAN CORPUSCULAR HGB CONC 33.1 g/dl (32.0-36.5); MONO # 0.5 10^3/uL (0.0-0.8); MONO % 7.1 % (2.0-8.0); NEUTROPHILS # 3.9 10^3/uL (1.5-8.5); NEUTROPHILS % 59.3 % (36.0-66.0); PLATELET COUNT, AUTOMATED 269 10^3/uL (150-450); RED BLOOD COUNT 4.28 10^6/uL (4.00-5.40); WHITE BLOOD COUNT 6.5 10^3/uL (4.0-10.0)
[2022-04-14 18:27] LABS: ALBUMIN 4.3 GM/DL (3.2-5.2); ALT/SGPT 48 U/L (12-78); BILIRUBIN,TOTAL 0.5 MG/DL (0.2-1.0); BLOOD UREA NITROGEN 15 MG/DL (7-18); CALCIUM LEVEL 9.9 MG/DL (8.5-10.1); CARBON DIOXIDE LEVEL 29 MEQ/L (21-32); CHLORIDE LEVEL 102 MEQ/L (98-107); CHOLESTEROL LEVEL 184 MG/DL (<200); CHOLESTEROL RISK RATIO 3.228 (<5); FREE T4 0.82 NG/DL (0.76-1.46); GLOMERULAR FILTRATION RATE > 60.0 (>60); GLUCOSE, FASTING 94 MG/DL (70-100); HDL CHOLESTEROL 57 MG/DL (>40); LDL CHOLESTEROL 79 MG/DL (<100); NON-HDL-C 127 MG/DL; SODIUM LEVEL 136 MEQ/L (136-145); TOTAL PROTEIN 7.6 GM/DL (6.4-8.2); TRIGLYCERIDES LEVEL 238 MG/DL (<150)
== END ==
LOC: M WUC 11:32
PROVIDERS: ATTEND Student in an Organized Health Care Education/Training Program
DX: R63.5 Abnormal weight gain (principal); D75.89 Other specified diseases of blood and blood-forming organs

== ENCOUNTER → 2024-12-31 | Outpatient (CLI) | payer OTHER | LOC: M WUC 08:37 | PROVIDERS: ATTEND Student in an Organized Health Care Education/Training Program | DX: M79.672 Pain in left foot (principal) ==